=== PATIENT | female | born 1965 | race Caucasian/White ===

== ENCOUNTER 2018-03-24 19:34 | Inpatient (IN) | payer OTHER ==
[~2018-03-24] VITALS: Ht 168.9 cm; Wt 68.7 kg
[~2018-03-24 19:34] MED LIST: BACT800T5 PO; CLIN1CAP5 PO
[2018-03-24 19:57] VITALS: BP 146/88; PULSE 114; RESP 18; TEMP 102.9; O2SAT 97
[2018-03-24 21:00] LABS: AUTOMATED NEUTROPHIL # 8.7 TH/MM3 (1.8-7.7); BASOPHIL % 0.4 % (0.0-2.0); EOSINOPHIL % 0.2 % (0.0-4.0); HEMATOCRIT 40.4 % (35.0-46.0); HEMOGLOBIN 13.9 GM/DL (11.6-15.3); LYMPH % 10.2 % (9.0-44.0); MEAN CELL VOLUME 86.1 FL (80.0-100.0); MEAN CORPUSCULAR HEMOGLOBIN 29.7 PG (27.0-34.0); MEAN CORPUSCULAR HGB CONC 34.5 % (32.0-36.0); MEAN PLATELET VOLUME 7.3 FL (7.0-11.0); MONO % 4.3 % (0.0-8.0); MONOCYTE # 0.4 TH/MM3 (0-0.9); NEUT % 84.9 % (16.0-70.0); PLATELET COUNT 301 TH/MM3 (150-450); RED BLOOD COUNT 4.69 MIL/MM3 (4.00-5.30); RED CELL DISTRIBUTION WIDTH 13.8 % (11.6-17.2); WHITE BLOOD COUNT 10.3 TH/MM3 (4.0-11.0)
[2018-03-24 21:10] LABS: ALBUMIN 3.9 GM/DL (3.4-5.0); AST (GOT) 16 U/L (15-37); BICARBONATE 25.3 MEQ/L (21.0-32.0); BLOOD UREA NITROGEN 7 MG/DL (7-18); CALCIUM 9.3 MG/DL (8.5-10.1); CHLORIDE 96 MEQ/L (98-107); CREATININE 0.78 MG/DL (0.50-1.00); GLOMERULAR FILTRATION RATE 77 ML/MIN (>89); GLUCOSE,RANDOM 104 MG/DL (74-106); SODIUM (NA) 132 MEQ/L (136-145)
[2018-03-24 21:11] LABS: ALT (GPT) 24 U/L (10-53)
[2018-03-24 21:13] LABS: ALKALINE PHOSPHATASE 128 U/L (45-117); TOTAL BILIRUBIN ADULT 0.7 MG/DL (0.2-1.0); TOTAL PROTEIN 8.2 GM/DL (6.4-8.2)
[2018-03-24 21:21] VITALS: BP 150/76; PULSE 95; RESP 18; O2SAT 98
--- NOTE | 2018-03-24 21:29 | PD ---
HPI Chief Complaint: Fever Time Seen by Provider: 20:54 Travel History International Travel<30 days: No Contact w/Intl Traveler<30days: No Traveled to known affect area: No History of Present Illness HPI 52 YO F presents to the ED for evaluation of ~24 hour history of fever and vaginal spotting. She denies ear pain, sore throat, rhinorrhea, sinus congestion , cough, chest pain, palpitations, shortness of breath, abdominal pain, anorexia , diarrhea, constipation, melena, hematochezia, dysuria, hematuria, back pain, neck pain, neck stiffness, numbness, tingling, weakness, limitations to range of motion of the extremities. She denies sick contacts. She states she has been menopausal for 6 years. She has not had a Pap smear in many years. Denies rough sex, foreign body, vaginal trauma, vaginal odor, vaginal discharge , unprotected sexual encounters. She denies IVDA, alcohol use. Endorses cigarette smoking. She did not receive this years flu immunization. [facility], LAT[facility] Past Medical History Medical History: Denies Significant Hx Cerebrovascular Accident: Yes (TIA) Tetanus Vaccination: Unknown Influenza Vaccination: No ?: Not Social History Alcohol Use: No Tobacco Use: No Substance Use: Yes (marijuana) Allergies-Medications (Allergen,Severity, Reaction): Coded Allergies: codeine (Unverified Allergy, Intermediate, EDEMA AND VOMITING, 03/24/18) Reported Meds & Prescriptions Reported Meds & Active Scripts Active Review of Systems Except as stated in HPI: all other systems reviewed are Neg Physical Exam Narrative GENERAL: Well-nourished, well-developed white female in no acute distress. SKIN: Warm and dry. Multiple small small wounds of the bilateral upper extremity suspicious for track aguilar. There is a scar in the right antecubital space. HEAD: Normocephalic. Atraumatic. EYES: No scleral icterus. No injection or drainage. PERRLA. EOMI. ENT: Pearly barney tympanic membranes bilaterally. Nasal mucosa is moist. Oropharynx without erythema, edema or exudate. NECK: Supple, trachea midline. No JVD or lymphadenopathy. No midline tenderness to palpation. Patient retains full, active, painless range of motion of the neck. No nuchal rigidity. CARDIOVASCULAR: Tachycardic, regular rate and rhythm without murmurs, gallops, or rubs. 2+ DP and radial pulses bilaterally. RESPIRATORY: Breath sounds clear and equal bilaterally. No accessory muscle use. GASTROINTESTINAL: Abdomen soft, non-tender, nondistended. + Bowel sounds MUSCULOSKELETAL: No cyanosis, or edema. No tenderness to palpation or limitations to range of motion of the joints of the upper and lower extremities bilaterally. NEUROLOGICAL: Awake and alert. Cranial nerves II through XII intact. Motor and sensory grossly within normal limits. 5/5 muscle strength in all muscle groups. Normal speech. BACK: Nontender without obvious deformity. No CVA tenderness. No midline tenderness. Data Data Last Documented VS Orders Orders Sepsis Workup Initiated (03/24/18 ) Complete Blood Count With Diff (03/24/18 20:01) Comprehensive Metabolic Panel (03/24/18 20:) Urinalysis - C+S If Indicated (03/24/18 20:) Lactic Acid Sepsis Protocol (03/24/18 20:01) Blood Culture (03/24/18 20:01) Iv Access Insert/Monitor (03/24/18 20:01) Lactic Acid Sepsis Protocol (03/24/18 21:18) Influenzae A/B Antigen (03/24/18 21:18) Chest, Single Ap (03/24/18 ) Ed Urine Pregnancytest Poc (03/24/18:18) Sodium Chlor 0.9% 1000 Ml Inj (Ns 1000 M (03/24/18 21:30) Sepsis Workup Initiated (03/24/18 ) Electrocardiogram (03/24/18 21:19) Blood Glucose (03/24/18 21:19) Ecg Monitoring (03/24/18 21:19) Oximetry (03/24/18 21:19) Acetaminophen (Tylenol) (03/24/18 21:30) Ondansetron Odt (Zofran Odt) (03/24/18 21:30) Sodium Chlor 0.9% 1000 Ml Inj (Ns 1000 M (03/24/18 21:30) Troponin I (03/24/18 21:27) Ckmb (Isoenzyme) Profile (03/24/18 21:27) Drug Screen, Random Urine (03/24/18 21:45) Admit Order (Ed Use Only) (03/25/18 00:59) Labs Laboratory Tests Test 03/24/18 20:29 03/24/18 21:03/24/18 23:30 White Blood Count 10.3 TH/MM3 Red Blood Count 4.69 MIL/MM3 Hemoglobin 13.9 GM/DL Hematocrit 40.4 % Mean Corpuscular Volume 86.1 FL Mean Corpuscular Hemoglobin 29.7 PG Mean Corpuscular Hemoglobin Concent 34.5 % Red Cell Distribution Width 13.8 % Platelet Count 301 TH/MM3 Mean Platelet Volume 7.3 FL Neutrophils (%) (Auto) 84.9 % Lymphocytes (%) (Auto) 10.2 % Monocytes (%) (Auto) 4.3 % Eosinophils (%) (Auto) 0.2 % Basophils (%) (Auto) 0.4 % Neutrophils # (Auto) 8.7 TH/MM3 Lymphocytes # (Auto) 1.0 TH/MM3 Monocytes # (Auto) 0.4 TH/MM3 Eosinophils # (Auto) 0.0 TH/MM3 Basophils # (Auto) 0.0 TH/MM3 CBC Comment DIFF FINAL Differential Comment Blood Urea Nitrogen 7 MG/DL Creatinine 0.78 MG/DL Random Glucose 104 MG/DL Total Protein 8.2 GM/DL Albumin 3.9 GM/DL Calcium Level 9.3 MG/DL Alkaline Phosphatase 128 U/L Aspartate Amino Transf (AST/SGOT) 16 U/L Alanine Aminotransferase (ALT/SGPT) 24 U/L Total Bilirubin 0.7 MG/DL Sodium Level 132 MEQ/L Potassium Level 3.2 MEQ/L Chloride Level 96 MEQ/L Carbon Dioxide Level 25.3 MEQ/L Anion Gap 11 MEQ/L Estimat Glomerular Filtration Rate 77 ML/MIN Lactic Acid Level 0.9 mmol/L 1.1 mmol/L Total Creatine Kinase 32 U/L Troponin I LESS THAN 0.02 NG/ML Urine Color LIGHT-YELLOW Urine Turbidity CLEAR Urine pH 5.5 Urine Specific [place] 1.006 Urine Protein NEG mg/dL Urine Glucose (UA) NEG mg/dL Urine Ketones NEG mg/dL Urine Occult Blood NEG Urine Nitrite NEG Urine Bilirubin NEG Urine Urobilinogen LESS THAN 2.0 MG/DL Urine Leukocyte Esterase NEG Urine RBC LESS THAN 1 /hpf Urine WBC 2 /hpf Urine Squamous Epithelial Cells <1 /hpf Urine Transitional Epithelial Cells <1 /hpf Urine Bacteria RARE /hpf Urine Mucus FEW /lpf Microscopic Urinalysis Comment CULT NOT INDICATED Urine Opiates Screen NEG Urine Barbiturates Screen NEG Urine Amphetamines Screen NEG Urine Benzodiazepines Screen NEG Urine Cocaine Screen NEG Urine Cannabinoids Screen POS [facility] Medical Decision Making Medical Screen Exam Complete: Yes Emergency Medical Condition: Yes Differential Diagnosis influenza versus echovirus versus postmenopausal bleeding versus leiomyoma versus other Narrative Course 52 YO F presents to the ED for evaluation of ~24 hour history of fever and vaginal spotting. Menopausal for 6 years. She has not had a Pap smear in many years. Did not receive this years flu vaccination. Denies IVDA. Temp 102.9, pulse 114, BP 146/88, respiratory rate 18, O2 sats 97% on room air on presentation. On exam this is an ill-appearing white female in no acute distress. No focal neuro deficits. No nuchal rigidity. ENT exam unremarkable. Chest CTA B. Abdomen soft and nontender. I do note several small puncture wounds on bilateral upper extremities that are suspicious for track. Patient adamantly denies IVDA. IV was established. Sepsis fluid resuscitation was initiated. Patient was administered 650 mg Tylenol p.o., 4 mg Zofran ODT. Blood cultures were obtained. I offered the patient a pelvic exam, she declines at this time. EKG rate 92, sinus rhythm. W[place] interval 135, QRS 98, QTC 385 ms. Normal axis. CXR: Negative exam CBC: WBC 10.3. Hemoglobin 13.9. CMP: BUN 7, creatinine 0.78. Sodium 132, chloride 96. Potassium 3.2. Lactic acid 0.9. Repeat lactic acid 1.1. Influenza swab negative. ED urine test negative. UA: Pending. Urine drug screen: Pending. Patient signed out to Dr. Smith end of shift. Please see his note for disposition. Gail Gomez Mar 24, 2018 21:29
[2018-03-24] MEDS ORDERED: SODIUM CHLOR 0.9% 1000 ML INJ 1,000 ML IV ONE ×2 (21:30)
[2018-03-24] MEDS ORDERED: ACETAMINOPHEN 325 MG TAB PO ONE (21:30)
[2018-03-24] MEDS ORDERED: ONDANSETRON ODT 4 MG TAB PO ONE (21:30)
--- NOTE | 2018-03-24 21:52 | RADRPT ---
EXAM DATE: 03/24/2018 9:46 PM EDT AGE/SEX: 52 years / Female INDICATIONS: Shortness of breath, mid-chest pain and mid to lower back pain. CLINICAL DATA: This is the patient's initial encounter. Patient reports that signs and symptoms have been present for 1 day and indicates a pain score of 10/10. MEDICAL/SURGICAL HISTORY: None. . Neck surgery. COMPARISON: No prior [facility] exams available for comparison. FINDINGS: A single AP view of the chest demonstrates the lungs to be symmetrically aerated without evidence of mass, infiltrate or effusion. The cardiomediastinal contours are unremarkable. Osseous structures a re intact. CONCLUSION: Negative examination. Electronically signed by: Omre Middleton MD 03/24/2018 9:50 PM EDT
[2018-03-24 22:25] VITALS: TEMP 102.1
--- NOTE | 2018-03-24 22:34 | PD ---
Physical Exam Date Seen by Provider: Mar 24, 2018 Time Seen by Provider: 22:32 Narrative The patient is a 52-year-old female who was initially evaluated by the mid- level provider. Please refer to the initial history, physical, diagnostic evaluation, and treatment modality plan. The patient was signed out at 10:30 PM with UA pending. Data Data Last Documented VS Vital Signs Date Time Temp Pulse Resp B/P (MAP) Pulse Ox O2 Delivery O2 Flow Rate FiO2 03/25/18 00:37 101.6 92 16 138/79 (98) 99 Room Air Orders Orders Sepsis Workup Initiated (03/24/18 ) Complete Blood Count With Diff (03/24/18 20:01) Comprehensive Metabolic Panel (03/24/18 20:01) Urinalysis - C+S If Indicated (03/24/18 20:01) Lactic Acid Sepsis Protocol (03/24/18 20:01) Blood Culture (03/24/18 20:01) Iv Access Insert/Monitor (03/24/18 20:01) Lactic Acid Sepsis Protocol (03/24/18 21:18) Influenzae A/B Antigen (03/24/18 21:18) Chest, Single Ap (03/24/18 ) Ed Urine Pregnancytest Poc (03/24/18:18) Sodium Chlor 0.9% 1000 Ml Inj (Ns 1000 M (03/24/18 21:30) Sepsis Workup Initiated (03/24/18 ) Electrocardiogram (03/24/18 21:19) Blood Glucose (03/24/18 21:19) Ecg Monitoring (03/24/18 21:19) Oximetry (03/24/18 21:19) Acetaminophen (Tylenol) (03/24/18 21:30) Ondansetron Odt (Zofran Odt) (03/24/18 21:30) Sodium Chlor 0.9% 1000 Ml Inj (Ns 1000 M (03/24/18 21:30) Troponin I (03/24/18 21:27) Ckmb (Isoenzyme) Profile (03/24/18 21:27) Drug Screen, Random Urine (03/24/18 21:45) Admit Order (Ed Use Only) (03/25/18 00:59) Labs Laboratory Tests Test 03/24/18 20:29 03/24/18 21:25 03/24/18 23:30 White Blood Count 10.3 TH/MM3 Red Blood Count 4.69 MIL/MM3 Hemoglobin 13.9 GM/DL Hematocrit 40.4 % Mean Corpuscular Volume 86.1 FL Mean Corpuscular Hemoglobin 29.7 PG Mean Corpuscular Hemoglobin Concent 34.5 % Red Cell Distribution Width 13.8 % Platelet Count 301 TH/MM3 Mean Platelet Volume 7.3 FL Neutrophils (%) (Auto) 84.9 % Lymphocytes (%) (Auto) 10.2 % Monocytes (%) (Auto) 4.3 % Eosinophils (%) (Auto) 0.2 % Basophils (%) (Auto) 0.4 % Neutrophils # (Auto) 8.7 TH/MM3 Lymphocytes # (Auto) 1.0 TH/MM3 Monocytes # (Auto) 0.4 TH/MM3 Eosinophils # (Auto) 0.0 TH/MM3 Basophils # (Auto) 0.0 TH/MM3 CBC Comment DIFF FINAL Differential Comment Blood Urea Nitrogen 7 MG/DL Creatinine 0.78 MG/DL Random Glucose 104 MG/DL Total Protein 8.2 GM/DL Albumin 3.9 GM/DL Calcium Level 9.3 MG/DL Alkaline Phosphatase 128 U/L Aspartate Amino Transf (AST/SGOT) 16 U/L Alanine Aminotransferase (ALT/SGPT) 24 U/L Total Bilirubin 0.7 MG/DL Sodium Level 132 MEQ/L Potassium Level 3.2 MEQ/L Chloride Level 96 MEQ/L Carbon Dioxide Level 25.3 MEQ/L Anion Gap 11 MEQ/L Estimat Glomerular Filtration Rate 77 ML/MIN Lactic Acid Level 0.9 mmol/L 1.1 mmol/L Total Creatine Kinase 32 U/L Troponin I LESS THAN 0.02 NG/ML Urine Color LIGHT-YELLOW Urine Turbidity CLEAR Urine pH 5.5 Urine Specific [place] 1.006 Urine Protein NEG mg/dL Urine Glucose (UA) NEG mg/dL Urine Ketones NEG mg/dL Urine Occult Blood NEG Urine Nitrite NEG Urine Bilirubin NEG Urine Urobilinogen LESS THAN 2.0 MG/DL Urine Leukocyte Esterase NEG Urine RBC LESS THAN 1 /hpf Urine WBC 2 /hpf Urine Squamous Epithelial Cells <1 /hpf Urine Transitional Epithelial Cells <1 /hpf Urine Bacteria RARE /hpf Urine Mucus FEW /lpf Microscopic Urinalysis Comment CULT NOT INDICATED Urine Opiates Screen NEG Urine Barbiturates Screen NEG Urine Amphetamines Screen NEG Urine Benzodiazepines Screen NEG Urine Cocaine Screen NEG Urine Cannabinoids Screen POS MDM Medical Record Reviewed: Yes Supervised Visit with JIM: Yes Interpretation(s) Last Impressions Chest X-Ray 03/24/18 0000 Signed Impressions: CONCLUSION: Negative examination. Date/Time Source Procedure Growth Status 03/24/18 20:29 Blood Peripheral Aerobic Blood Culture Pending Received 03/24/18 20:29 Blood Peripheral Anaerobic Blood Culture Pending Received 03/24/18 20:29 Blood Peripheral Aerobic Blood Culture Pending Received 03/24/18 20:29 Blood Peripheral Anaerobic Blood Culture Pending Received 03/24/18 21:25 Nasal Washing Influenza Types A,B Antigen (TRINI) - Final NEGATIVE FOR FLU A AND B ANTIGEN.... Complete Laboratory Tests Test 03/24/18 20:29 03/24/18 21:25 03/24/18 23:30 White Blood Count 10.3 TH/MM3 Red Blood Count 4.69 MIL/MM3 Hemoglobin 13.9 GM/DL Hematocrit 40.4 % Mean Corpuscular Volume 86.1 FL Mean Corpuscular Hemoglobin 29.7 PG Mean Corpuscular Hemoglobin Concent 34.5 % Red Cell Distribution Width 13.8 % Platelet Count 301 TH/MM3 Mean Platelet Volume 7.3 FL Neutrophils (%) (Auto) 84.9 % Lymphocytes (%) (Auto) 10.2 % Monocytes (%) (Auto) 4.3 % Eosinophils (%) (Auto) 0.2 % Basophils (%) (Auto) 0.4 % Neutrophils # (Auto) 8.7 TH/MM3 Lymphocytes # (Auto) 1.0 TH/MM3 Monocytes # (Auto) 0.4 TH/MM3 Eosinophils # (Auto) 0.0 TH/MM3 Basophils # (Auto) 0.0 TH/MM3 CBC Comment DIFF FINAL Differential Comment Blood Urea Nitrogen 7 MG/DL Creatinine 0.78 MG/DL Random Glucose 104 MG/DL Total Protein 8.2 GM/DL Albumin 3.9 GM/DL Calcium Level 9.3 MG/DL Alkaline Phosphatase 128 U/L Aspartate Amino Transf (AST/SGOT) 16 U/L Alanine Aminotransferase (ALT/SGPT) 24 U/L Total Bilirubin 0.7 MG/DL Sodium Level 132 MEQ/L Potassium Level 3.2 MEQ/L Chloride Level 96 MEQ/L Carbon Dioxide Level 25.3 MEQ/L Anion Gap 11 MEQ/L Estimat Glomerular Filtration Rate 77 ML/MIN Lactic Acid Level 0.9 mmol/L 1.1 mmol/L Total Creatine Kinase 32 U/L Troponin I LESS THAN 0.02 NG/ML Urine Color LIGHT-YELLOW Urine Turbidity CLEAR Urine pH 5.5 Urine Specific [place] 1.006 Urine Protein NEG mg/dL Urine Glucose (UA) NEG mg/dL Urine Ketones NEG mg/dL Urine Occult Blood NEG Urine Nitrite NEG Urine Bilirubin NEG Urine Urobilinogen LESS THAN 2.0 MG/DL Urine Leukocyte Esterase NEG Urine RBC LESS THAN 1 /hpf Urine WBC 2 /hpf Urine Squamous Epithelial Cells <1 /hpf Urine Transitional Epithelial Cells <1 /hpf Urine Bacteria RARE /hpf Urine Mucus FEW /lpf Microscopic Urinalysis Comment CULT NOT INDICATED Urine Opiates Screen NEG Urine Barbiturates Screen NEG Urine Amphetamines Screen NEG Urine Benzodiazepines Screen NEG Urine Cocaine Screen NEG Urine Cannabinoids Screen POS Differential Diagnosis Differential diagnosis includes bacteremia, septicemia, pyelonephritis, influenza, pneumonia, sepsis, viral syndrome. Narrative Course The patient is a 52-year-old female was initially evaluated by the mid-level provider. Please refer to the initial history, physical, diagnostic evaluation , treatment modality plan. The patient did meet SIRS criteria, had initial lactic acid and follow-up lactic acid that were normal. White count was normal. Influenza screen was negative. Chest x-ray reveals no evidence of pneumonia. UA was sent to lab. UA is unremarkable. Influenza screen is negative. White count was normal with negative lactic acid, however, the patient's temperature was reevaluated and was still over 101 with tachycardia between 101 110. Therefore, patient was administered Toradol 50 mg intravenously. She denies any history of IVDA, however, possibly was noted to have possible track aguilar in the right ACF. Therefore, the patient was administered Vanco will be a 23 hour observation until blood cultures are negative. Sepsis Criteria SIRS Criteria (2 or more): Temp > 100.9 or < 96.8, Heart rate over 90 Physician Communication Physician Communication The on-call medical service was paged for 23 hour observation. I discussed the patient with Dr. Walker who agrees with 23-hour observation. Diagnosis Primary Impression: Febrile illness Additional Impression: SIRS (systemic inflammatory response syndrome) Admitting Information Admitting Physician Requests: Observation Scripts No Active Prescriptions or Reported Meds Condition: Stable Shawn Smith MD Mar 24, 2018 22:34
[2018-03-24 23:54] LABS: BACTERIA, URINE RARE /hpf; BILIRUBIN, URINE NEG (NEG); BLOOD, URINE NEG (NEG); GLUCOSE,URINE NEG (NEG); KETONE, URINE NEG (NEG); MUCUS URINE FEW /lpf (OCC); NITRITE,URINE NEG (NEG); PH, URINE 5.5 (5.0-8.5); SQUAMOUS EPITHELIAL CELL URINE <1 /hpf (0-5); TRANSITIONAL EPI CELLS, URINE <1 /hpf; URINE COLOR LIGHT-YELLOW (YELLW/STRAW); URINE LEUKOCYTE ESTERASE NEG (NEG)
[2018-03-25] VITALS (8 sets, daily range): BP systolic 97–138; BP diastolic 55–79; PULSE 72–94; RESP 16–20; TEMP 97.7–101.6; O2SAT 94–99
[2018-03-25 00:31] LABS: TROPONIN I LESS THAN 0.02 NG/ML (0.02-0.05)
[2018-03-25] MEDS: SODIUM CHLOR 0.9% 1000 ML INJ 1,000 ML IV SCH ×3 (01:27→21:12)
[2018-03-25] MEDS ORDERED: POTASSIUM CHLORIDE 10 MEQ CONTROLLED RELEASE TAB PO ONE (01:30)
[2018-03-25] MEDS ORDERED: NALOXONE HCL 0.4 MG/ML AMP IV PUSH PRN (01:30)
[2018-03-25] MEDS ORDERED: SODIUM CHLORIDE 0.9% FLUSH 10 ML FLUSH IV FLUSH PRN (01:30)
[2018-03-25] MEDS: ACETAMINOPHEN 325 MG TAB PO PRN ×3 (02:00→21:03)
--- NOTE | 2018-03-25 02:32 | HHI.HP ---
[facility] No Primary Care Physician Admission Diagnosis Febrile illness with SIRS Diagnoses: Travel History International Travel<30 Days: No Contact w/Intl Traveler <30 Da: No Traveled to Known Affected Are: No History of Present Illness 52-year-old female with no significant past medical history presents emergency department for evaluation of fever. Patient reports at home her fever was 103. She endorses nausea and associated vomiting 5 or 6 episodes. She denies any chest pain or shortness of breath. No cough or rhinorrhea. No abdominal pain. In the ED the patient was noted to have multiple small wounds in the bilateral upper extremities that were suspicious for track aguilar. Patient adamantly denies any IV drug abuse. Vital signs: Temperature 102.9, pulse 114, respiratory rate 18, blood pressure 146/88, pulse ox 97% on room air Review of Systems Except as stated in HPI: all other systems reviewed are Neg Past Family Social History Past Medical History None Past Surgical History Neck surgery Reported Medications Reported Meds & Active Scripts Active No Active Prescriptions or Reported Medications Allergies: Coded Allergies: codeine (Unverified Allergy, Intermediate, EDEMA AND VOMITING, 03/24/18) Family History Negative for CAD/DM Social History Occasional tobacco. Denies alcohol and illicit drugs. Physical Exam Vital Signs Vital Signs Date Time Temp Pulse Resp B/P (MAP) Pulse Ox O2 Delivery O2 Flow Rate FiO2 03/25/18 02:16 101.5 94 20 129/63 (85) 97 03/25/18 01:42 03/25/18 00:37 101.6 92 16 138/79 (98) 99 Room Air 03/24/18 22:25 102.1 03/24/18 21:21 95 18 150/76 (100) 98 Room Air 03/24/18 21:21 95 20 98 Room Air 03/24/18 19:57 102.9 114 18 146/88 (107) 97 Physical Exam GENERAL: female lying in bed SKIN: Multiple small wounds, bilateral forearms without signs of infection HEAD: Atraumatic. Normocephalic. No temporal or scalp tenderness. EYES: Pupils equal round and reactive. Extraocular motions intact. No scleral icterus. No injection or drainage. ENT: Nose without bleeding, purulent drainage or septal hematoma. Throat without erythema, tonsillar hypertrophy or exudate. Uvula midline. Airway patent. NECK: Trachea midline. No JVD or lymphadenopathy. Supple, nontender, no meningeal signs. CARDIOVASCULAR: Regular rate and rhythm without murmurs, gallops, or rubs. RESPIRATORY: Clear to auscultation. Breath sounds equal bilaterally. No wheezes , rales, or rhonchi. GASTROINTESTINAL: Abdomen soft, non-tender, nondistended. No hepato-splenomegaly , or palpable masses. No guarding. MUSCULOSKELETAL: Extremities without clubbing, cyanosis, or edema. No joint tenderness, effusion, or edema noted. No calf tenderness. NEUROLOGICAL: Awake and alert. Cranial nerves II through XII intact. Motor and sensory grossly within normal limits. Normal speech. Laboratory Laboratory Tests Test 03/24/18 20:29 03/24/18 21:25 03/24/18 23:30 White Blood Count 10.3 Red Blood Count 4.69 Hemoglobin 13.9 Hematocrit 40.4 Mean Corpuscular Volume 86.1 Mean Corpuscular Hemoglobin 29.7 Mean Corpuscular Hemoglobin Concent 34.5 Red Cell Distribution Width 13.8 Platelet Count 301 Mean Platelet Volume 7.3 Neutrophils (%) (Auto) 84.9 Lymphocytes (%) (Auto) 10.2 Monocytes (%) (Auto) 4.3 Eosinophils (%) (Auto) 0.2 Basophils (%) (Auto) 0.4 Neutrophils # (Auto) 8.7 Lymphocytes # (Auto) 1.0 Monocytes # (Auto) 0.4 Eosinophils # (Auto) 0.0 Basophils # (Auto) 0.0 CBC Comment DIFF FINAL Differential Comment Blood Urea Nitrogen 7 Creatinine 0.78 Random Glucose 104 Total Protein 8.2 Albumin 3.9 Calcium Level 9.3 Alkaline Phosphatase 128 Aspartate Amino Transf (AST/SGOT) 16 Alanine Aminotransferase (ALT/SGPT) 24 Total Bilirubin 0.7 Sodium Level 132 Potassium Level 3.2 Chloride Level 96 Carbon Dioxide Level 25.3 Anion Gap 11 Estimat Glomerular Filtration Rate 77 Lactic Acid Level 0.9 1.1 Total Creatine Kinase 32 Troponin I LESS THAN 0.02 Urine Color LIGHT-YELLOW Urine Turbidity CLEAR Urine pH 5.5 Urine Specific [place] 1.006 Urine Protein NEG Urine Glucose (UA) NEG Urine Ketones NEG Urine Occult Blood NEG Urine Nitrite NEG Urine Bilirubin NEG Urine Urobilinogen LESS THAN 2.0 Urine Leukocyte Esterase NEG Urine RBC LESS THAN 1 Urine WBC 2 Urine Squamous Epithelial Cells <1 Urine Transitional Epithelial Cells <1 Urine Bacteria RARE Urine Mucus FEW Microscopic Urinalysis Comment CULT NOT INDICATED Urine Opiates Screen NEG Urine Barbiturates Screen NEG Urine Amphetamines Screen NEG Urine Benzodiazepines Screen NEG Urine Cocaine Screen NEG Urine Cannabinoids Screen POS Date/Time Source Procedure Growth Status 03/24/18 20:29 Blood Peripheral Aerobic Blood Culture Pending Received 03/24/18 20:29 Blood Peripheral Anaerobic Blood Culture Pending Received 03/24/18 21:25 Nasal Washing Influenza Types A,B Antigen (TRINI) - Final NEGATIVE FOR FLU A AND B ANTIGEN.... Complete Result Diagram: 03/24/18202803/24/182028 Caprini VTE Risk Assessment Caprini VTE Risk Assessment: No/Low Risk (score <= 1) Caprini Risk Assessment Model Point Value = 1 Point Value = 2 Point Value = 3 Point Value = 5 Age 41-60 Minor surgery BMI > 25 kg/m2 Swollen legs Varicose veins or History of unexplained or recurrent spontaneous Oral contraceptives or hormone replacement Sepsis (< 1 month) Serious lung disease, including pneumonia (< 1 month) Abnormal pulmonary function Acute myocardial infarction Congestive heart failure (< 1 month) History of inflammatory bowel disease Medical patient at bed rest Age 61-74 Arthroscopic surgery Major open surgery (> 45 min) Laparoscopic surgery (> 45 min) Malignancy Confined to bed (> 72 hours) Immobilizing plaster cast Central venous access Age >= 75 History of VTE Family history of VTE Factor V Leiden Prothrombin [id number] Lupus anticoagulant Anticardiolipin antibodies Elevated serum homocysteine Heparin-induced thrombocytopenia Other congenital or acquired thrombophilia Stroke (< 1 month) Elective arthroplasty Hip, pelvis, or leg fracture Acute spinal cord injury (< 1 month) Prophylaxis Regimen Total Risk Factor Score Risk Level Prophylaxis Regimen 0-1 Low Early ambulation 2 Moderate Order ONE of the following: *Sequential Compression Device (SCD) *Heparin 5000 units SQ BID 3-4 Higher Order ONE of the following medications: *Heparin 5000 units SQ TID *Enoxaparin/Lovenox 40 mg SQ daily (WT < 150 kg, CrCl > 30 mL/min) *Enoxaparin/Lovenox 30 mg SQ daily (WT < 150 kg, CrCl > 10-29 mL/min) *Enoxaparin/Lovenox 30 mg SQ BID (WT < 150 kg, CrCl > 30 mL/min) AND/OR *Sequential Compression Device (SCD) 5 or more Highest Order ONE of the following medications: *Heparin 5000 units SQ TID (Preferred with Epidurals) *Enoxaparin/Lovenox 40 mg SQ daily (WT < 150 kg, CrCl > 30 mL/min) *Enoxaparin/Lovenox 30 mg SQ daily (WT < 150 kg, CrCl > 10-29 mL/min) *Enoxaparin/Lovenox 30 mg SQ BID (WT < 150 kg, CrCl > 30 mL/min) AND *Sequential Compression Device (SCD) Assessment and Plan Assessment and Plan Assessment/plan: 1. Fever Unknown origin Chest x-ray negative for acute process, personally reviewed UA negative Blood cultures pending Given multiple wounds on bilateral upper extremities, suspicion for IV drug abuse. Patient will be admitted to observation until blood cultures return out of concern for bacteremia. 2. Hypokalemia Status post p.o. supplementation Monitor [facility] healthy diet Electrolytes: As above NS at 100 cc/hour Allie Walker MD Mar 25, 2018 02:31
[2018-03-25] MEDS: SODIUM CHLORIDE 0.9% FLUSH 10 ML FLUSH IV FLUSH SCH ×2 (09:00→21:11)
--- NOTE | 2018-03-25 09:26 | HHI.PR ---
Subjective Remarks Follow up on patient with fever. Patient seen and examined. Patient complains of severe left-sided headache radiating down to left side of her neck. She states she has left-sided neck pain chronically but this is much worse. It is exacerbated with movement. She reports sudden onset of fever as high as 103 yesterday while at home with associated nausea and vomiting 10. She denies any blood in the vomitus. She denies any complaints of abdominal pain or diarrhea. She does state that she had some vaginal bleeding which she has not had for years that she is postmenopausal. She denies any urinary complaints. She denies any ill contacts. She denies any previous history of meningitis. Influenza AB was negative. Blood cultures are pending. Tmax 102.1 overnight, currently temp 99.1. Objective Vitals Vital Signs Date Time Temp Pulse Resp B/P (MAP) Pulse Ox O2 Delivery O2 Flow Rate FiO2 03/25/18 08:02 99.1 78 16 101/59 (73) 94 03/25/18 05:06 98.3 84 18 118/64 (82) 95 03/25/18 02:16 101.5 94 20 129/63 (85) 97 03/25/18 01:42 03/25/18 00:37 101.6 92 16 138/79 (98) 99 Room Air 03/24/18 22:25 102.1 03/24/18 21:21 95 18 150/76 (100) 98 Room Air 03/24/18 21:21 95 20 98 Room Air 03/24/18 19:57 102.9 114 18 146/88 (107) 97 Result Diagram: 03/24/18202803/24/182028 Imaging Last Impressions Chest X-Ray 03/24/18 0000 Signed Impressions: CONCLUSION: Negative examination. Objective Remarks GENERAL: Thin WDWN female, INAD. Lying in bed. SKIN: Multiple small wounds, bilateral forearms without signs of infection HEAD: Atraumatic. Normocephalic. +left sided temporal tenderness to palpation. EYES: Pupils equal round and reactive. Extraocular motions intact. No scleral icterus. No injection or drainage. ENT: Nose without bleeding or purulent drainage. Throat without erythema, tonsillar hypertrophy or exudate. Uvula midline. Airway patent. NECK: Trachea midline. No JVD or lymphadenopathy. Left side of neck/trapezius area tender to palpation ?rigidity on exam. CARDIOVASCULAR: Regular rate and rhythm without murmurs, gallops, or rubs. RESPIRATORY: Clear to auscultation. Breath sounds equal bilaterally. No wheezes , rales, or rhonchi. GASTROINTESTINAL: Abdomen soft, nondistended. +tenderness to palpation RLQ. No hepato-splenomegaly, or palpable masses. No guarding. MUSCULOSKELETAL: Extremities without clubbing, cyanosis, or edema. No joint tenderness, effusion, or edema noted. No calf tenderness. NEUROLOGICAL: Awake and alert. Cranial nerves II through XII grossly intact. Motor and sensory grossly within normal limits. Normal speech. PSYCHIATRIC: Calm and cooperative. Procedures None A/P Assessment and Plan 52-year-old female with no significant past medical history presents emergency department for evaluation of fever. Patient reports at home her fever was 103. She endorses nausea and associated vomiting 5 or 6 episodes. Fever of uncertain etiology ?viral etiology Chest x-ray negative for acute process UA negative Influenza neg Blood cultures pending lactic acid 1.1 c/o left sided headache and neck pain ?rigidity on exam -await blood culture results -monitor fevers and white count -obtain LP and follow up on fluid studies -lidoderm patch to left side of neck -supportive care N/V abdominal pain -obtain CT abd/pelvis with IV contrast -obtain lipase level -IV antiemetics prn Hypokalemia, suspect secondary to GI losses Status post p.o. supplementation -Monitor BMP/repeat lab pending Hyponatremia, mild -continue on IVF -continue to monitor sodium level Cannabis use Urine tox screen + for cannabinoids -discussed cessation FEN Heart healthy diet Electrolytes: As above NS at 100 cc/hour Mary May Mar 25, 2018 09:26
[2018-03-25 10:07] LABS: HEMATOCRIT 37.9 % (35.0-46.0); HEMOGLOBIN 12.7 GM/DL (11.6-15.3); MEAN CORPUSCULAR HEMOGLOBIN 28.8 PG (27.0-34.0); MEAN CORPUSCULAR HGB CONC 33.5 % (32.0-36.0); MEAN PLATELET VOLUME 7.2 FL (7.0-11.0); PLATELET COUNT 280 TH/MM3 (150-450); WHITE BLOOD COUNT 11.8 TH/MM3 (4.0-11.0)
[2018-03-25 10:16] LABS: INTERNATIONAL NORMALIZED RATIO 1.3 RATIO; PROTHROMBIN TIME - PATIENT 12.7 SEC (9.8-11.6)
[2018-03-25 10:24] LABS: BICARBONATE 23.7 MEQ/L (21.0-32.0); CALCIUM 7.7 MG/DL (8.5-10.1); CREATININE 0.51 MG/DL (0.50-1.00)
[2018-03-25] MEDS ORDERED: DIATRIZOATE MEGLUM/DIATRIZOATE SOD 9 ML CUP PO ONE (11:00)
[2018-03-25] MEDS ORDERED: Vancomycin Consult Pharmacy 1 EA OTHER SCH (11:30)
--- NOTE | 2018-03-25 11:49 | PD.RAD ---
Post Procedure Progress Note Pre Procedure Diagnosis: (1) Febrile illness Post Procedure Diagnosis: (1) Febrile illness Procedure Date: Mar 25, 2018 Supervising Radiologist: Chinedu Lewis JR Proceduralist/Assist: Gin Muñoz, RT(R), Clark Louie RT(R) Anesthesia: Local Plan of Activity Patient to Unit: Nursing Unit Patient Condition: Good See PACS Report for procedural detail/treatment Spinal Procedure Lumbar Puncture L4-L5 Fluid Removal (CCs): 10 Fluid Description: Clear Puncture Time: 11:40 Findings: Opening pressure 13.8 cmH2O Jr. Joshua,Chinedu Alarcon MD Mar 25, 2018 11:49
[2018-03-25 12:26] LABS: TOTAL PROTEIN,CSF 26.2 MG/DL (15.0-45.0)
[2018-03-25] MEDS ORDERED: VANCOMYCIN INJ 1,000 MG in SODIUM CHLOR 0.9% 250 ML INJ 250 ML IV ONE (12:30)
[2018-03-25] MEDS: LIDOCAINE HCL 5% PATCH T-DERMAL SCH (12:35)
[2018-03-25 12:57] LABS: SUPERNATE COLOR TUBE #1 CLEAR (CLEAR); VOLUME TUBE # 1 2.8 ML
[2018-03-25 12:58] LABS: CSF LYMPHOCYTES 0 %; CSF NEUTROPHILS 0 %; WBC TUBE #1 0 /MM3 (0-10); WBC TUBE #4 0 /MM3 (0-10)
[2018-03-25 12:59] LABS: RBC TUBE #1 1 /MM3
--- NOTE | 2018-03-25 13:12 | PD.ID.CON ---
History of Present Illness Service ID Consult Requested By Dr Felipe Reason for Consult MRSA sepsis Primary Care Physician No Primary Care Physician Diagnoses: History of Present Illness 52 yo female presetned with high fever x 1 day Malaise and 9/10 neck pain for 2 mos H/[place] in [facility] [place] ago. Per pt she had neck fracture and infection. SHe cant recall what bacteria she was infected with. She is s/p harware and cadaver graft placement into the neck 1 yr ago Her culterus are 4/4 positive for MRSA @ 1 day She denies any neurologolical issue, specifically no extremeties weakness/ numbness or incontinence She had LP today and resiultx are P Review of Systems Constitutional: COMPLAINS OF: Fatigue, Fever, Night Sweats Musculoskeletal: COMPLAINS OF: Neck pain Neurologic: COMPLAINS OF: Headache Except as stated in HPI: all other systems reviewed are Neg Past Family Social History Allergies: Coded Allergies: codeine (Unverified Allergy, Intermediate, EDEMA AND VOMITING, 03/24/18) Past Medical History None Past Surgical History Neck surgery Active Ordered Medications Medications where reviewed in EMR Antibiotics Include: vancomycin Family History Negative for CAD/DM Social History Occasional tobacco. Denies alcohol and illicit drugs. Physical Exam Vital Signs Vital Signs Date Time Temp Pulse Resp B/P (MAP) Pulse Ox O2 Delivery O2 Flow Rate FiO2 03/25/18 10:30 98.2 76 20 97/55 (69) 96 03/25/18 08:02 99.1 78 16 101/59 (73) 94 03/25/18 05:06 98.3 84 18 118/64 (82) 95 03/25/18 02:16 101.5 94 20 129/63 (85) 97 03/25/18 01:42 03/25/18 00:37 101.6 92 16 138/79 (98) 99 Room Air 03/24/18 22:25 102.1 03/24/18 21:21 95 18 150/76 (100) 98 Room Air 03/24/18 21:21 95 20 98 Room Air 03/24/18 19:57 102.9 114 18 146/88 (107) 97 Physical Exam CONSTITUTIONAL/GENERAL: This is an adequately nourished patient, in no apparent distress. TUBES/LINES/DRAINS: SKIN: No jaundice, rashes, or lesions. Skin temperature appropriate. Not diaphoretic. HEAD: Atraumatic. Normocephalic. EYES: Pupils equal and round and reactive. Extraocular motions intact. No scleral icterus. No injection or drainage. Fundi not examined. ENT: Hearing grossly normal. Nose without bleeding or purulent drainage. Throat without visible erythema, exudates, masses, or lesions. NECK: Trachea midline. Supple, tender to palpation. Well healed scar posterior neck. No edema, erythema, drainage CARDIOVASCULAR: Regular rate and rhythm without murmurs, gallops, or rubs. No JVD. Peripheral pulses symmetric. RESPIRATORY/CHEST: Symmetric, unlabored respirations. Clear to auscultation. Breath sounds equal bilaterally. No wheezes, rales, or rhonchi. GASTROINTESTINAL: Abdomen soft, non-tender, nondistended. No hepato-splenomegaly , or palpable masses. No guarding. Bowel sounds present. GENITOURINARY: Without palpable bladder distension. MUSCULOSKELETAL: Extremities without clubbing, cyanosis, or edema. No joint tenderness or effusion noted. No calf tenderness. No mottling or clubbing. LYMPHATICS: No palpable cervical or supraclavicular adenopathy. NEUROLOGICAL: Awake and alert. Motor and sensory grossly within normal limits. Follows commands. Cognitively sharp. Moves all extremities. PSYCHIATRIC: No obvious anxiety/depression. no apparent hallucinations or other psychotic thought process. Laboratory Laboratory Tests Test 03/24/18 20:29 03/24/18 21:25 03/24/18 23:30 03/25/18 09:35 White Blood Count 10.3 11.8 Red Blood Count 4.69 4.40 Hemoglobin 13.9 12.7 Hematocrit 40.4 37.9 Mean Corpuscular Volume 86.1 86.0 Mean Corpuscular Hemoglobin 29.7 28.8 Mean Corpuscular Hemoglobin Concent 34.5 33.5 Red Cell Distribution Width 13.8 14.0 Platelet Count 301 280 Mean Platelet Volume 7.3 7.2 Neutrophils (%) (Auto) 84.9 Lymphocytes (%) (Auto) 10.2 Monocytes (%) (Auto) 4.3 Eosinophils (%) (Auto) 0.2 Basophils (%) (Auto) 0.4 Neutrophils # (Auto) 8.7 Lymphocytes # (Auto) 1.0 Monocytes # (Auto) 0.4 Eosinophils # (Auto) 0.0 Basophils # (Auto) 0.0 CBC Comment DIFF FINAL Differential Comment Blood Urea Nitrogen 7 6 Creatinine 0.78 0.51 Random Glucose 104 118 Total Protein 8.2 Albumin 3.9 Calcium Level 9.3 7.7 Alkaline Phosphatase 128 Aspartate Amino Transf (AST/SGOT) 16 Alanine Aminotransferase (ALT/SGPT) 24 Total Bilirubin 0.7 Sodium Level 132 141 Potassium Level 3.2 3.5 Chloride Level 96 109 Carbon Dioxide Level 25.3 23.7 Anion Gap 11 8 Estimat Glomerular Filtration Rate 77 126 Lactic Acid Level 0.9 1.1 Total Creatine Kinase 32 Troponin I LESS THAN 0.02 Urine Color LIGHT-YELLOW Urine Turbidity CLEAR Urine pH 5.5 Urine Specific [place] 1.006 Urine Protein NEG Urine Glucose (UA) NEG Urine Ketones NEG Urine Occult Blood NEG Urine Nitrite NEG Urine Bilirubin NEG Urine Urobilinogen LESS THAN 2.0 Urine Leukocyte Esterase NEG Urine RBC LESS THAN 1 Urine WBC 2 Urine Squamous Epithelial Cells <1 Urine Transitional Epithelial Cells <1 Urine Bacteria RARE Urine Mucus FEW Microscopic Urinalysis Comment CULT NOT INDICATED Urine Opiates Screen NEG Urine Barbiturates Screen NEG Urine Amphetamines Screen NEG Urine Benzodiazepines Screen NEG Urine Cocaine Screen NEG Urine Cannabinoids Screen POS Prothrombin Time 12.7 Prothromb Time International Ratio 1.3 Activated Partial Thromboplast Time 28.8 C-Reactive Protein 10.90 Lipase 82 Test 03/25/18 11:32 CSF Glucose 77 CSF Lactic Acid 1.7 CSF Total Protein 26.2 Date/Time Source Procedure Growth Status 03/24/18 20:29 Blood Peripheral Aerobic Blood Culture - Preliminary Gram Positive Cocci Resulted 03/24/18 20:29 Anaerobic Blood Culture - Preliminary Gram Positive Cocci Resulted 03/25/18 11:32 Cerebral Spinal Fluid Lumbar Puncture Gram Stain - Final Resulted 03/25/18 11:32 Cerebral Spinal Fluid Lumbar Puncture CSF Culture Pending Resulted 03/24/18 21:25 Nasal Washing Influenza Types A,B Antigen (TRINI) - Final NEGATIVE FOR FLU A AND B ANTIGEN.... Complete Result Diagram: 03/25/18 0935 03/25/18 0935 Imaging Last Impressions Chest X-Ray 03/24/18 0000 Signed Impressions: CONCLUSION: Negative examination. Assessment and Plan Assessment and Plan MRSA sepsis Neck pain, h/o C spine instrumentation and infection CXlinical situation highly suspicious for recurretn neck infection Sepsis likley 2/2 cervical spine infection Neurologicallly intact - no e/o endocarditis on periferal exam Cont vancomycin add rifampin 2 D echo Cspine MRI w contrast NS consult if MRI + for infeciton Discussed Condition With pt Gin Lai MD Mar 25, 2018 13:12
[2018-03-25] MEDS ORDERED: LORazepam 1 MG TAB PO ONE (13:30)
--- NOTE | 2018-03-25 14:11 | RADRPT ---
EXAM DATE: 03/25/2018 12:00 PM EDT AGE/SEX: 52 years / Female INDICATIONS: Patient with a history of neck pain and fever. CLINICAL DATA: This is the patient's initial encounter. Patient reports that signs and symptoms have been present for 1 day and indicates a pain score of 9/10. MEDICAL/SURGICAL HISTORY: . . Neck surgery COMPARISON: No prior [facility] exams available for comparison. FLUORO TIME (min): 0.28 IMAGE SERIES: 1 ACCESS SITE: L4-5 LUMBAR PUNCTURE TIME: 1132 hours OPENING PRESSURE: 13.8 cm of water FLUID: Total volume of 10.5 cc of clear fluid was removed. sent to lab for ordered studies. . . PROCEDURE: 1. Fluoroscopic guided lumbar puncture. 2. Recording of opening pressure. The risks, benefits and alternatives to the procedure were explained and verbal and written consent w as obtained. The site was prepped in sterile fashion. Full sterile technique was used, including ca p, mask, sterile gloves and gown and a large sterile sheet. Hand hygiene and 2% chlorhexidine and/or betadine/alcohol prep was utilized per protocol for cutaneous antisepsis. The skin and subcutaneous tissues were infiltrated with local anesthetic solution. With fluoroscopic guidance the lumbar thecal sac was punctured at the above level described above and the opening pressure was recorded. The above described fluid was removed without difficulty. The patient tolerated the procedure well and there were no complications. CONCLUSION: 1. Uncomplicated fluoroscopically guided lumbar puncture with pressures as above. Electronically signed by: Chinedu Lewis MD 03/25/2018 2:10 PM EDT
[2018-03-25] MEDS ORDERED: GADODIAMIDE PF 287 MG/ML 5 ML VIAL (for RAD MRI) IVCONTRAST ONE (14:50)
--- NOTE | 2018-03-25 15:13 | RADRPT ---
EXAM DATE: 03/25/2018 2:57 PM EDT AGE/SEX: 52 years / Female INDICATIONS: Abscess. Neck pain and fever. CLINICAL DATA: This is the patient's subsequent encounter. Patient reports that signs and symptoms h ave been present for 1 month and indicates a pain score of 8/10. MEDICAL/SURGICAL HISTORY: . TIA. Fusion, cervical. Breast implants. COMPARISON: No prior [facility] exams available for comparison. TECHNIQUE: Multiplanar, multisequence MRI examination of the cervical spine was performed without an d with 12 ml Omniscan (gadodiamide) contrast as a single exam dose. FINDINGS: Vertebrae: There has been prior C5 and C6 corpectomy with placement of a intercalated bone graft keysha tebral bodies. Anterior plate and screws extending from C4 through C7. There is no prevertebral edema . Posteriorly hardware is present in the posterior elements at these levels bilaterally. Alignment: No anterolisthesis or retrolisthesis. Cord: There is increased T2 signal within the central anterior aspect of the cord at the C5-C6 level adjacent to the prior surgery. The appearance suggest myelomalacia. No epidural abscess is visualize d. Post Fossa: The cerebellar tonsils are normal in position. The craniocervical junction and C1-C2 level demonstrate no acute abnormality. C2-C3: No disc herniation, canal stenosis, or neural foraminal stenosis. C3-C4: There is mild facet arthrosis. Small posterior disc osteophyte complex is present, largest in a right paracentral location. However, no significant spinal canal stenosis or neural foraminal sten osis is present. C4-C5: No disc herniation, canal stenosis, or neural foraminal stenosis. There is mild susceptibilit y artifact secondary to the hardware C5-C6: No disc herniation, canal stenosis, or neural foraminal stenosis. C6-C7: No disc herniation, canal stenosis, or neural foraminal stenosis. C7-T1: No disc herniation, canal stenosis, or neural foraminal stenosis. Post contrast: No abnormal areas of contrast enhancement are identified. Other: The visualized surrounding structures demonstrate no acute abnormality. CONCLUSION: 1. No epidural abscess is identified and there are no findings to suggest infection. Patient is post C5 and C6 corpectomy with bone graft placement and anterior and posterior hardware placement. Hardwa re demonstrates no acute finding. 2. Abnormal signal within the spinal cord adjacent to the surgery. This most likely represents myelo malacia. 3. No significant spinal canal stenosis or neural foraminal stenosis is identified. Electronically signed by: Isidro Livingston MD 03/25/2018 3:12 PM EDT
[2018-03-25] MEDS: traMADol HCL 50 MG TAB PO PRN ×2 (15:47→23:13)
[2018-03-25] MEDS: NICOTINE 14 MG/24 HR PATCH T-DERMAL SCH (16:54)
[2018-03-25] MEDS ORDERED: IOHEXOL 350 MG/ML 10 ML VIAL (for RAD DIAG) IVCONTRAST ONE (18:42)
--- NOTE | 2018-03-25 19:06 | RADRPT ---
EXAM DATE: 03/25/2018 6:53 PM EDT AGE/SEX: 52 years / Female INDICATIONS: Nausea and fever. CLINICAL DATA: This is the patient's initial encounter. Patient reports that signs and symptoms have been present for 1 day and indicates a pain score of 4/10. MEDICAL/SURGICAL HISTORY: Stroke. Fusion, cervical. ORAL CONTRAST: Prescribed oral contrast ingested. RADIATION DOSE: 5.2 CTDI (mGy) COMPARISON: . TECHNIQUE: Multiple contiguous axial images were obtained through the abdomen and pelvis following b olus infusion of 75 ml Omnipaque 350 (iohexol) nonionic water-soluble contrast as a single exam dos e. Prescribed oral contrast ingested. Using automated exposure control and adjustment of the mA and/ or kV according to patient size, the radiation dose was kept as low as reasonably achievable to obtai n optimal diagnostic quality images. FINDINGS: Lower Lungs: The visualized lower lungs are clear. Liver: The liver has a homogeneous density without space-occupying lesion. There is no dilation of th e biliary tree. Spleen: Homogeneous density without enlargement. Pancreas: Unremarkable without mass or calcification. Kidneys: Normal in size and shape. No evidence of mass or hydronephrosis. Adrenal Glands: Unremarkable. Aorta: The aorta and proximal iliac vessels are grossly unremarkable without aneurysmal dilation. Bowel/Mesentery: The bowel loops are grossly unremarkable. The cecum and sigmoid colon have a normal configuration. Abdominal Wall: Intact. Retroperitoneum: No evidence of adenopathy in the retrocrural, para-aortic, or deep pelvic regions. Bladder: Contours are smooth. Reproductive Organs: Trace amount of free fluid within the cul-de-sac. Uterus is anteverted. There i s a dilated left gonadal vein measuring 9 mm. Pelvic varicosities bilaterally. No abnormal masses or calcifications seen. Inguinal: The inguinal region is unremarkable without evidence of adenopathy. Bony Structures: Pectus excavatum deformity.. CONCLUSION: 1. Trace amount of free fluid within the cul-de-sac. 2. No acute abnormality . 3. Dilated gonadal vein with pelvic varicosities. This can be seen in pelvic congestion syndrome. 4. Pectus excavatum. Electronically signed by: Chinedu Lewis MD 03/25/2018 7:05 PM EDT
--- NOTE | 2018-03-25 19:07 | EKG ---
Date Performed: 03/24/2018 Time Performed: 20:16:04 PTAGE: 52 years EKG: Sinus rhythm ST DEVIATION AND MODERATE T-WAVE ABNORMALITY ABNORMAL ECG NO PREVIOUS TRACING DOCTOR: Ivett Meza Interpretating Date/Time 03/25/2018 19:07:05
[2018-03-25] MEDS: REMOVE OLD LIDOCAINE PATCH T-DERMAL SCH (21:00)
[2018-03-25] MEDS: ONDANSETRON ODT 4 MG TAB PO PRN (21:11)
[2018-03-26] MEDS: VANCOMYCIN INJ 1,250 MG in SODIUM CHLOR 0.9% 250 ML INJ 250 ML IV SCH ×2 (00:57→14:22)
[2018-03-26 03:34] VITALS: BP 120/72; PULSE 53; RESP 18; TEMP 99.1; O2SAT 98
[2018-03-26 05:53] LABS: BICARBONATE 24.1 MEQ/L (21.0-32.0); CALCIUM 8.5 MG/DL (8.5-10.1); CREATININE 0.47 MG/DL (0.50-1.00)
[2018-03-26 06:03] LABS: AUTOMATED NEUTROPHIL # 5.2 TH/MM3 (1.8-7.7); BASOPHIL # 0.1 TH/MM3 (0-0.2); BASOPHIL % 0.7 % (0.0-2.0); EOSINOPHIL # 0.2 TH/MM3 (0-0.4); EOSINOPHIL % 2.8 % (0.0-4.0); HEMATOCRIT 38.5 % (35.0-46.0); HEMOGLOBIN 13.2 GM/DL (11.6-15.3); LYMPH % 23.9 % (9.0-44.0); LYMPHOCYTE # 1.8 TH/MM3 (1.0-4.8); MEAN CELL VOLUME 86.6 FL (80.0-100.0); MEAN CORPUSCULAR HEMOGLOBIN 29.6 PG (27.0-34.0); MEAN CORPUSCULAR HGB CONC 34.2 % (32.0-36.0); MEAN PLATELET VOLUME 7.5 FL (7.0-11.0); MONO % 4.5 % (0.0-8.0); MONOCYTE # 0.3 TH/MM3 (0-0.9); NEUT % 68.1 % (16.0-70.0); PLATELET COUNT 241 TH/MM3 (150-450); RED BLOOD COUNT 4.45 MIL/MM3 (4.00-5.30); RED CELL DISTRIBUTION WIDTH 13.8 % (11.6-17.2); WHITE BLOOD COUNT 7.6 TH/MM3 (4.0-11.0)
[2018-03-26] MEDS: traMADol HCL 50 MG TAB PO PRN ×3 (07:20→23:42)
[2018-03-26 07:49] VITALS: BP 128/67; PULSE 69; RESP 16; TEMP 97.8; O2SAT 95
[2018-03-26] MEDS ORDERED: REMOVE OLD PATCH T-DERMAL SCH (09:00)
[2018-03-26] MEDS ORDERED: RIFAMPIN 150 MG CAP PO SCH (09:00)
[2018-03-26] MEDS: SODIUM CHLORIDE 0.9% FLUSH 10 ML FLUSH IV FLUSH SCH ×2 (09:00→20:46)
[2018-03-26] MEDS: NICOTINE 14 MG/24 HR PATCH T-DERMAL SCH (10:33)
[2018-03-26] MEDS: LIDOCAINE HCL 5% PATCH T-DERMAL SCH (10:33)
[2018-03-26] MEDS: SODIUM CHLOR 0.9% 1000 ML INJ 1,000 ML IV SCH ×2 (10:34→17:19)
[2018-03-26 11:00] VITALS: BP 114/67; PULSE 62; RESP 16; TEMP 98; O2SAT 97
--- NOTE | 2018-03-26 13:10 | HHI.IDPN ---
Subjective Subjective Remarks MRI showed myelomalacia. Seen by Dr Crooks: cw old changes no active infection Today c/o excruciating sinus pain and headache CSF wnl Antibiotics vancomycin rifampin Allergies: Coded Allergies: codeine (Unverified Allergy, Intermediate, EDEMA AND VOMITING, 03/24/18) Objective . Vital Signs Date Time Temp Pulse Resp B/P (MAP) Pulse Ox O2 Delivery O2 Flow Rate FiO2 03/26/18 11:00 98.0 62 16 114/67 (83) 97 03/26/18 07:49 97.8 69 16 128/67 (87) 95 03/26/18 03:34 99.1 53 18 120/72 (88) 98 03/25/18 23:45 98.2 83 20 122/67 (85) 98 03/25/18 20:00 98.7 72 18 128/68 (88) 98 03/25/18 15:34 97.7 85 20 103/65 (78) 98 . Laboratory Tests Test 03/24/18 20:29 03/25/18 09:35 03/25/18 16:30 03/26/18 05:02 White Blood Count 10.3 TH/MM3 11.8 TH/MM3 7.6 TH/MM3 Red Blood Count 4.69 MIL/MM3 4.40 MIL/MM3 4.45 MIL/MM3 Hemoglobin 13.9 GM/DL 12.7 GM/DL 13.2 GM/DL Hematocrit 40.4 % 37.9 % 38.5 % Mean Corpuscular Volume 86.1 FL 86.0 FL 86.6 FL Mean Corpuscular Hemoglobin 29.7 PG 28.8 PG 29.6 PG Mean Corpuscular Hemoglobin Concent 34.5 % 33.5 % 34.2 % Red Cell Distribution Width 13.8 % 14.0 % 13.8 % Platelet Count 301 TH/MM3 280 TH/MM3 241 TH/MM3 Mean Platelet Volume 7.3 FL 7.2 FL 7.5 FL Neutrophils (%) (Auto) 84.9 % 68.1 % Lymphocytes (%) (Auto) 10.2 % 23.9 % Monocytes (%) (Auto) 4.3 % 4.5 % Eosinophils (%) (Auto) 0.2 % 2.8 % Basophils (%) (Auto) 0.4 % 0.7 % Neutrophils # (Auto) 8.7 TH/MM3 5.2 TH/MM3 Lymphocytes # (Auto) 1.0 TH/MM3 1.8 TH/MM3 Monocytes # (Auto) 0.4 TH/MM3 0.3 TH/MM3 Eosinophils # (Auto) 0.0 TH/MM3 0.2 TH/MM3 Basophils # (Auto) 0.0 TH/MM3 0.1 TH/MM3 CBC Comment DIFF FINAL DIFF FINAL Differential Comment Erythrocyte Sedimentation Rate 17 mm/hr Hematology Comments Laboratory Tests Test 03/24/18 20:29 03/24/18 21:25 03/25/18 09:35 03/26/18 05:02 Blood Urea Nitrogen 7 MG/DL 6 MG/DL 5 MG/DL Creatinine 0.78 MG/DL 0.51 MG/DL 0.47 MG/DL Random Glucose 104 MG/DL 118 MG/DL 120 MG/DL Total Protein 8.2 GM/DL Albumin 3.9 GM/DL Calcium Level 9.3 MG/DL 7.7 MG/DL 8.5 MG/DL Alkaline Phosphatase 128 U/L Aspartate Amino Transf (AST/SGOT) 16 U/L Alanine Aminotransferase (ALT/SGPT) 24 U/L Total Bilirubin 0.7 MG/DL Sodium Level 132 MEQ/L 141 MEQ/L 141 MEQ/L Potassium Level 3.2 MEQ/L 3.5 MEQ/L 3.5 MEQ/L Chloride Level 96 MEQ/L 109 MEQ/L 108 MEQ/L Carbon Dioxide Level 25.3 MEQ/L 23.7 MEQ/L 24.1 MEQ/L Anion Gap 11 MEQ/L 8 MEQ/L 9 MEQ/L Estimat Glomerular Filtration Rate 77 ML/MIN 126 ML/MIN 139 ML/MIN Lactic Acid Level 0.9 mmol/L 1.1 mmol/L Total Creatine Kinase 32 U/L Troponin I LESS THAN 0.02 NG/ML C-Reactive Protein 10.90 MG/DL Lipase 82 U/L Microbiology Date/Time Source Procedure Growth Status 03/26/18 05:06 Blood Peripheral Aerobic Blood Culture Pending Received 03/26/18 05:06 Blood Peripheral Anaerobic Blood Culture Pending Received 03/26/18 05:02 Blood Peripheral Aerobic Blood Culture Pending Received 03/26/18 05:02 Blood Peripheral Anaerobic Blood Culture Pending Received 03/24/18 20:29 Blood Peripheral Aerobic Blood Culture - Preliminary S. Aureus Mrsa Resulted 03/24/18 20:29 Anaerobic Blood Culture - Preliminary S. Aureus Mrsa Resulted 03/24/18 20:29 Blood Peripheral Aerobic Blood Culture - Preliminary S. Aureus Mrsa Resulted 03/24/18 20:29 Anaerobic Blood Culture - Preliminary S. Aureus Mrsa Resulted 03/25/18 11:32 Cerebral Spinal Fluid Lumbar Puncture Gram Stain - Final Resulted 03/25/18 11:32 Cerebral Spinal Fluid Lumbar Puncture CSF Culture - Preliminary NO GROWTH IN 24 HOURS. Resulted 03/24/18 21:25 Nasal Washing Influenza Types A,B Antigen (TRINI) - Final NEGATIVE FOR FLU A AND B ANTIGEN.... Complete Imaging Last Impressions Lumbar Puncture Fluoroscopy 03/25/18 0000 Signed Impressions: CONCLUSION: 1. Uncomplicated fluoroscopically guided lumbar puncture with pressures as abo ve. Cervical Spine MRI 03/25/18 Signed Impressions: CONCLUSION: 1. No epidural abscess is identified and there are no findings to suggest infe ction. Patient is post C5 and C6 corpectomy with bone graft placement and anter ior and posterior hardware placement. Hardware demonstrates no acute finding. 2. Abnormal signal within the spinal cord adjacent to the surgery. This most l ikely represents myelomalacia. 3. No significant spinal canal stenosis or neural foraminal stenosis is identi fied. Abdomen/Pelvis CT 03/25/18 Signed Impressions: CONCLUSION: 1. Trace amount of free fluid within the cul-de-sac. 2. No acute abnormality . 3. Dilated gonadal vein with pelvic varicosities. 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 4. Pectus excavatum. Chest X-Ray 03/24/18 Signed Impressions: CONCLUSION: Negative examination. Physical Exam CONSTITUTIONAL/GENERAL: This is an adequately nourished patient, in some apparent distress 2/2 headache TUBES/LINES/DRAINS: SKIN: No jaundice, rashes, or lesions. Skin temperature appropriate. Not diaphoretic. HEAD: Atraumatic. Normocephalic. EYES: Pupils equal and round and reactive. Extraocular motions intact. No scleral icterus. No injection or drainage. Fundi not examined. ENT: Hearing grossly normal. Nose without bleeding or purulent drainage. Throat without visible erythema, exudates, masses, or lesions. NECK: Trachea midline. Supple, tender to palpation. Well healed scar posterior neck. No edema, erythema, drainage CARDIOVASCULAR: Regular rate and rhythm without murmurs, gallops, or rubs. No JVD. Peripheral pulses symmetric. RESPIRATORY/CHEST: Symmetric, unlabored respirations. Clear to auscultation. Breath sounds equal bilaterally. No wheezes, rales, or rhonchi. GASTROINTESTINAL: Abdomen soft, non-tender, nondistended. No hepato-splenomegaly , or palpable masses. No guarding. Bowel sounds present. MUSCULOSKELETAL: Extremities without clubbing, cyanosis, or edema. No joint tenderness or effusion noted. No calf tenderness. No mottling or clubbing. NEUROLOGICAL: Awake and alert. Motor and sensory grossly within normal limits. Follows commands. Cognitively sharp. Moves all extremities. PSYCHIATRIC: No obvious anxiety/depression. no apparent hallucinations or other psychotic thought process. Assessment & Plan Remarks MRSA sepsis Neck pain, h/o C spine instrumentation and infection no e/o abscess on MRI - CSF neg Headache - no e/o endocarditis on periferal exam Cont vancomycin dc rifampin 2 D echo Brain MRI ([facility]) Discussed Condition With Gin Foster MD Mar 26, 2018 13:10
--- NOTE | 2018-03-26 13:19 | HHI.PR ---
Subjective Remarks Follow up bacteremia, headache. Patient reporting "sinus congestion". Denies fever, chills, night sweats. Denies chest pain, dyspnea. She is having pain in the left thoracic region radiating around to the left anterior ribcage. Objective Vitals Vital Signs Date Time Temp Pulse Resp B/P (MAP) Pulse Ox O2 Delivery O2 Flow Rate FiO2 03/26/18 11:00 98.0 62 16 114/67 (83) 97 03/26/18 07:49 97.8 69 16 128/67 (87) 95 03/26/18 03:34 99.1 53 18 120/72 (88) 98 03/25/18 23:45 98.2 83 20 122/67 (85) 98 03/25/18 20:00 98.7 72 18 128/68 (88) 98 03/25/18 15:34 97.7 85 20 103/65 (78) 98 I/O 03/25/18 03/25/18 03/25/18 03/26/18 03/26/18 03/26/18 07:00 15:00 23:00 07:00 15:00 23:00 Intake Total 960 ml 720 ml Balance 960 ml 720 ml Intake Oral 960 ml 720 ml # Voids 3 3 # Bowel Movements 0 0 Result Diagram: 03/26/18 0502 03/26/18 0502 Imaging Last Impressions Lumbar Puncture Fluoroscopy 03/25/18 0000 Signed Impressions: CONCLUSION: 1. Uncomplicated fluoroscopically guided lumbar puncture with pressures as abo ve. Cervical Spine MRI 03/25/18 0000 Signed Impressions: CONCLUSION: 1. No epidural abscess is identified and there are no findings to suggest infe ction. Patient is post C5 and C6 corpectomy with bone graft placement and anter ior and posterior hardware placement. Hardware demonstrates no acute finding. 2. Abnormal signal within the spinal cord adjacent to the surgery. This most l ikely represents myelomalacia. 3. No significant spinal canal stenosis or neural foraminal stenosis is identi fied. Abdomen/Pelvis CT 03/25/18 0000 Signed Impressions: CONCLUSION: 1. Trace amount of free fluid within the cul-de-sac. 2. No acute abnormality . 3. Dilated gonadal vein with pelvic varicosities. 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 4. Pectus excavatum. Chest X-Ray 03/24/18 0000 Signed Impressions: CONCLUSION: Negative examination. Objective Remarks General: No acute distress. Heart: Regular rate and rhythm. No murmur. Lungs: Clear to auscultation bilaterally. No wheezes, rales, or rhonchi. Breathing is nonlabored. Abdomen: Soft, nontender, nondistended. Back: Tenderness in the midthoracic region. Lidoderm patch in place. Extremities: No lower extremity edema. Psych: Alert and oriented. Neuro: Normal speech. No focal deficits noted. Procedures 03/25/18 lumbar puncture Urinary Catheter: No Vascular Central Line Catheter: No A/P Assessment and Plan 1. Bacteremia: Blood cultures growing MRSA. Appreciate infectious disease recommendations. Continue vancomycin IV. Repeat blood cultures are pending. 2. Back and neck pain: Patient has history of spinal infection. Appreciate neurosurgery recommendations. Lidoderm patch ordered. 3. Abdominal pain, vaginal bleeding: Patient had vaginal bleeding on the day of admission. 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 Consult gynecology. 4. Sinus pressure: Add Flonase. 5. DVT prophylaxis: SCDs. Avoid chemical prophylaxis as patient just had lumbar puncture. Antonio Mcconnell MD Mar 26, 2018 13:19
[2018-03-26] MEDS ORDERED: LORazepam 1 MG TAB PO ONE (13:40)
[2018-03-26] MEDS: FLUTICASONE PROPIONATE 50 MCG/ACT 16 GM NASAL SPRAY NASAL SCH (14:23)
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
[2018-03-26 14:54] VITALS: BP 133/70; PULSE 64; RESP 20; TEMP 98.8; O2SAT 98
[2018-03-26] MEDS ORDERED: GADODIAMIDE PF 287 MG/ML 5 ML VIAL (for RAD MRI) IVCONTRAST ONE (16:03)
--- NOTE | 2018-03-26 16:18 | PD.CONS ---
[facility] Service Neurosurgery Consult Requested By Dr Lai Reason for Consult Myelomalasia Primary Care Physician No Primary Care Physician History of Present Illness This is a 52-year-old female who presents to [place] emergency department for evaluation of fever. Patient reports at home her fever was 103. She endorses nausea and associated vomiting 5 or 6 episodes. She denies any chest pain or shortness of breath. She has a history of an anterior cervical fusion as well as a posterior cervical fusion in the past with good results. Apparently she had severe stenosis with compression of the spinal cord and I suspect a chronic area of myelomalacia. Denies cough or rhinorrhea. No abdominal pain. In the ED the patient was noted to have multiple small wounds in the bilateral upper extremities that were suspicious for track aguilar. She denies any IV drug abuse. Vital signs: She denies any neck pain. She denies any low back pain or thoracic pain. She denies any weakness on her R Lower extremities. She denies any sensory loss. She denies any incontinence or stool or urinary retention. Her Temperature was 102.9. MRI of the cervical spine did not show any evidence of spinal infection, however she has a small area of myelomalacia. Neurosurgical consultation was requested, Review of Systems Constitutional: COMPLAINS OF: Fatigue, Fever, Chills, DENIES: Diaphoretic episodes, Weight gain, Weight loss, Dizziness, Change in appetite, Night Sweats Endocrine: DENIES: Abnorml menstrual pattern, Heat/cold intolerance, Polydipsia , Polyuria, Polyphagia Eyes: DENIES: Blurred vision, Diplopia, Eye inflammation, Eye pain, Vision loss , Photosensitivity, Double Vision Ears, nose, mouth, throat: DENIES: Tinnitus, Hearing loss, Vertigo, Nasal discharge, Oral lesions, Throat pain, Hoarseness, Ear Pain, Running Nose, Epistaxis, Sinus Pain, Toothache, Odynophagia Respiratory: DENIES: Apneas, Cough, Snoring, Wheezing, Hemoptysis, Sputum production, Shortness of breath Cardiovascular: DENIES: Chest pain, Palpitations, Syncope, Dyspnea on Exertion , PND, Lower Extremity Edema, Orthopnea, Claudication Gastrointestinal: DENIES: Abdominal pain, Black stools, Bloody stools, Constipation, Diarrhea, Nausea, Vomiting, Difficulty Swallowing, Anorexia Genitourinary: DENIES: Abnormal vaginal bleeding, Dysmenorrhea, Dyspareunia, Sexual dysfunction, Urinary frequency, Urinary incontinence, Urgency, Hematuria , Dysuria, Nocturia, Vaginal discharge Musculoskeletal: DENIES: Joint pain, Muscle aches, Stiffness, Joint Swelling, Back pain, Neck pain Integumentary: DENIES: Abnormal pigmentation, Pruritus, Rash, Nail changes, Breast masses, Breast skin changes, Nipple discharge Immunologic/allergic: DENIES: Eczema, Urticaria Neurologic: DENIES: Abnormal gait, Headache, Localized weakness, Paresthesias, Seizures, Speech Problems, Tremor, Poor Balance Past Family Social History Allergies: Coded Allergies: codeine (Unverified Allergy, Intermediate, EDEMA AND VOMITING, 03/24/18) Past Medical History Caprini VTE Risk Assessment Caprini VTE Risk Assessment: No/Low Risk (score <= 1) Caprini Risk Assessment Model Point Value = 1 Point Value = 2 Point Value = 3 Point Value = 5 Age 41-60 Minor surgery BMI > 25 kg/m2 Swollen legs Varicose veins or History of unexplained or recurrent spontaneous Oral contraceptives or hormone replacement Sepsis (< 1 month) Serious lung disease, including pneumonia (< 1 month) Abnormal pulmonary function Acute myocardial infarction Congestive heart failure (< 1 month) History of inflammatory bowel disease Medical patient at bed rest Age 61-74 Arthroscopic surgery Major open surgery (> 45 min) Laparoscopic surgery (> 45 min) Malignancy Confined to bed (> 72 hours) Immobilizing plaster cast Central venous access Age >= 75 History of VTE Family history of VTE Factor V Leiden Prothrombin [id number] Lupus anticoagulant Anticardiolipin antibodies Elevated serum homocysteine Heparin-induced thrombocytopenia Other congenital or acquired thrombophilia Stroke (< 1 month) Elective arthroplasty Hip, pelvis, or leg fracture Acute spinal cord injury (< 1 month) Prophylaxis Regimen Total Risk Factor Score Risk Level Prophylaxis Regimen 0-1 Low Early ambulation 2 Moderate Order ONE of the following: *Sequential Compression Device (SCD) *Heparin 5000 units SQ BID 3-4 Higher Order ONE of the following medications: *Heparin 5000 units SQ TID *Enoxaparin/Lovenox 40 mg SQ daily (WT < 150 kg, CrCl > 30 mL/min) *Enoxaparin/Lovenox 30 mg SQ daily (WT < 150 kg, CrCl > 10-29 mL/min) *Enoxaparin/Lovenox 30 mg SQ BID (WT < 150 kg, CrCl > 30 mL/min) AND/OR *Sequential Compression Device (SCD) 5 or more Highest Order ONE of the following medications: *Heparin 5000 units SQ TID (Preferred with Epidurals) *Enoxaparin/Lovenox 40 mg SQ daily (WT < 150 kg, CrCl > 30 mL/min) *Enoxaparin/Lovenox 30 mg SQ daily (WT < 150 kg, CrCl > 10-29 mL/min) *Enoxaparin/Lovenox 30 mg SQ BID (WT < 150 kg, CrCl > 30 mL/min) AND *Sequential Compression Device (SCD) Assessment and Plan Assessment and Plan Assessment/plan: 1. Fever Unknown origin Chest x-ray negative for acute process, personally reviewed UA negative Blood cultures pending Given multiple wounds on bilateral upper extremities, suspicion for IV drug abuse. Patient will be admitted to observation until blood cultures return out of concern for bacteremia. 2. Hypokalemia Status post p.o. supplementation Monitor [facility] [employer] healthy diet Electrolytes: As above NS at 100 cc/hour Past Surgical History Anterior and posterior cervical fusion Active Ordered Medications Current Medications Sodium Chloride 1,000 ml @ 999 mls/hr BOLUS ONCE IV Last administered on at 21:36; Start 03/24/18 at 21:30; Stop 03/24/18 at 22:30; Status DC Acetaminophen (Tylenol) 650 mg ONCE ONCE PO Last administered on 03/24/18 21: 37; Start 03/24/18 at 21:30; Stop 03/24/18 at 21:31; Status DC Ondansetron HCl (Zofran Odt) 4 mg ONCE ONCE PO Last administered on 03/24/18 21:37; Start 03/24/18 at 21:30; Stop 03/24/18 at 21:31; Status DC Sodium Chloride 1,000 ml @ 999 mls/hr BOLUS ONCE IV Last administered on at 21:37; Start 03/24/18 at 21:30; Stop 03/24/18 at 22:30; Status DC Sodium Chloride 1,000 ml @ 100 mls/hr Q10H IV Last administered on 03/26/18at 10 :34; Start 03/25/18 at 01:19 Sodium Chloride (NS Flush) 2 ml UNSCH PRN IV FLUSH FLUSH AFTER USING IV ACCESS ; Start 03/25/18 at 01:30 Sodium Chloride (NS Flush) 2 ml BID IV FLUSH Last administered on 03/25/18at 21: 11; Start 03/25/18 at 09:00 Acetaminophen (Tylenol) 650 mg Q4H PRN PO TEMP > 100.4 Last administered on 03/25 21:03; Start 03/25/18 at 01:30 Naloxone HCl (Narcan Inj) 0.4 mg UNSCH PRN IV PUSH SEE LABEL COMMENTS; Start at 01:30 Potassium Chloride (KCl) 30 meq ONCE ONCE PO Last administered on 03/25/18 02: 00; Start 03/25/18 at 01:30; Stop 03/25/18 at 01:31; Status DC Lidocaine HCl (Lidoderm 5% Patch.12 Hr) 1 patch DAILY T-DERMAL Last administered on 03/26/18 10:33; Start 03/25/18 at 09:15 Miscellaneous Information 1 Q24H T-DERMAL Last administered on 03/25/18 21:00; Start 03/25/18 at 21:00 Ondansetron HCl (Zofran Odt) 4 mg Q8HR PRN PO N/V Last administered on 21:11; Start 03/25/18 at 09:30 Diatrizoate Meglum/ Diatrizoate Sod ( Gastroview Liq) 18 ml ONCE ONCE PO Last administered on 03/25/18at 12:36; Start 03/25/18 at 11:00; Stop 03/25/18 at 11: 01; Status DC Pharmacy Profile Note 0 ml @ 0 mls/hr UNSCH OTHER ; Start 03/25/18 at 11:30 Vancomycin HCl 1000 mg/Sodium Chloride 250 ml @ 250 mls/hr ONCE ONCE IV Last administered on 03/25/18at 15:15; Start 03/25/18 at 12:30; Stop 03/25/18 at 13:50; Status DC Lorazepam (Ativan) 1 mg ONCE ONCE PO Last administered on 03/25/18at 14:01; Start 03/25/18 at 13:30; Stop 03/25/18 at 13:50; Status DC Vancomycin HCl 1250 mg/Sodium Chloride 262.5 ml @ 250 mls/hr Q12H IV Last administered on 03/26/18at 14:22; Start 03/26/18 at 01:00 Miscellaneous Information ([facility] Ordered Lab Info) SPECIFIC LAB TO BE DRAWN:VANCO TROUGH DATE TO BE DRBrayden.. ONCE ONCE .XX ; Start 03/27/18 at 00:45; Stop 03/27/18 at 00:46 Rifampin (Rifampin) 300 mg Q12HR PO Last administered on 03/26/18at 10:32; Start 03/26/18 at 09:00; Stop 03/26/18 at 13:12; Status DC Gadodiamide (Omniscan Pf Inj) 12 ml STK-MED ONCE IVCONTRAST Last administered on 03/25/18at 14:50; Start 03/25/18 at 14:50; Stop 03/25/18 at 14:51; Status DC Tramadol HCl (Ultram) 50 mg Q8H PRN PO PAIN 6-10 Last administered on 03/26/18at 15:26; Start 03/25/18 at 15:30 Nicotine (Habitrol 14 Mg Patch.24 Hr) 1 patch DAILY T-DERMAL Last administered on 03/26/18at 10:33; Start 03/25/18 at 16:45 Miscellaneous Information 1 DAILY T-DERMAL ; Start 03/26/18 at 09:00; Status Cancel Iohexol (Omnipaque 350 Inj) 75 ml STK-MED ONCE IVCONTRAST Last administered on 03/25/18at 18:42; Start 03/25/18 at 18:42; Stop 03/25/18 at 18:43; Status DC Miscellaneous Information 1 HS T-DERMAL ; Start 03/26/18 at 21:00 Fluticasone Propionate (Flonase Shawn Spr) 2 spray DAILY NASAL Last administered on 03/26/18at 14:23; Start 03/26/18 at 13:15 Lorazepam (Ativan) 1 mg ONCE ONCE PO Last administered on 03/26/18at 15:25; Start 03/26/18 at 13:40; Stop 03/26/18 at 13:41; Status DC Gadodiamide (Omniscan Pf Inj) 12 ml STK-MED ONCE IVCONTRAST Last administered on 03/26/18at 16:03; Start 03/26/18 at 16:03; Stop 03/26/18 at 16:04; Status DC Family History Family history was reviewed and was noncontributory to current admission Social History Occasional tobacco use. She denies alcohol use. She denies illicit drug use Physical Exam Vital Signs Vital Signs Date Time Temp Pulse Resp B/P (MAP) Pulse Ox O2 Delivery O2 Flow Rate FiO2 03/26/18 14:54 98.8 64 20 133/70 (91) 98 03/26/18 11:00 98.0 62 16 114/67 (83) 97 03/26/18 07:49 97.8 69 16 128/67 (87) 95 03/26/18 03:34 99.1 53 18 120/72 (88) 98 03/25/18 23:45 98.2 83 20 122/67 (85) 98 03/25/18 20:00 98.7 72 18 128/68 (88) 98 Physical Exam GENERAL White female lying in bed SKIN: Multiple small wounds, bilateral forearms without signs of infection HEAD: Atraumatic. Normocephalic. No temporal or scalp tenderness. EYES: Pupils equal round and reactive. Extraocular motions intact. No scleral icterus. No injection or drainage. ENT: Nose without bleeding, purulent drainage or septal hematoma. Throat without erythema, tonsillar hypertrophy or exudate. Uvula midline. Airway patent. NECK: Trachea midline. No JVD or lymphadenopathy. Supple, nontender, no meningeal signs. CARDIOVASCULAR: Regular rate and rhythm without murmurs, gallops, or rubs. RESPIRATORY: Clear to auscultation. Breath sounds equal bilaterally. No wheezes , rales, or rhonchi. GASTROINTESTINAL: Abdomen soft, non-tender, nondistended. No hepato-splenomegaly , or palpable masses. No guarding. MUSCULOSKELETAL: Extremities without clubbing, cyanosis, or edema. No joint tenderness, effusion, or edema noted. No calf tenderness. NEUROLOGICAL: alert, awake and oriented to time, place and person. Speech is fluent. Cranial nerve examination: pupils to be equal, round and reactive to light. Extra-ocular movements are intact. Facial motor and sensory function are normal and symmetrical. Gross hearing appears intact. Sternocleidomastoid and trapezius muscles are symmetrical. Other cranial nerves are intact. Neck is soft and supple with a good range of motion without pain. Muscle strength is normal in all muscle groups of both upper and lower extremities. Sensory examination is intact to light touch and pin prick in both the upper and lower extremities. Deep tendon reflexes are symmetrical in both upper and lower extremities. There is a bilateral plantar flexion response. Cerebellar examination is unremarkable, without deficits. Laboratory Laboratory Tests Test 03/25/18 16:30 03/26/18 05:02 Erythrocyte Sedimentation Rate 17 White Blood Count 7.6 Red Blood Count 4.45 Hemoglobin 13.2 Hematocrit 38.5 Mean Corpuscular Volume 86.6 Mean Corpuscular Hemoglobin 29.6 Mean Corpuscular Hemoglobin Concent 34.2 Red Cell Distribution Width 13.8 Platelet Count 241 Mean Platelet Volume 7.5 Neutrophils (%) (Auto) 68.1 Lymphocytes (%) (Auto) 23.9 Monocytes (%) (Auto) 4.5 Eosinophils (%) (Auto) 2.8 Basophils (%) (Auto) 0.7 Neutrophils # (Auto) 5.2 Lymphocytes # (Auto) 1.8 Monocytes # (Auto) 0.3 Eosinophils # (Auto) 0.2 Basophils # (Auto) 0.1 CBC Comment DIFF FINAL Differential Comment Hematology Comments Blood Urea Nitrogen 5 Creatinine 0.47 Random Glucose 120 Calcium Level 8.5 Sodium Level 141 Potassium Level 3.5 Chloride Level 108 Carbon Dioxide Level 24.1 Anion Gap 9 Estimat Glomerular Filtration Rate 139 Date/Time Source Procedure Growth Status 03/26/18 05:06 Blood Peripheral Aerobic Blood Culture Pending Received 03/26/18 05:06 Blood Peripheral Anaerobic Blood Culture Pending Received 03/25/18 11:32 Cerebral Spinal Fluid Lumbar Puncture Gram Stain - Final Resulted 03/25/18 11:32 Cerebral Spinal Fluid Lumbar Puncture CSF Culture - Preliminary NO GROWTH IN 24 HOURS. Resulted 03/24/18 21:25 Nasal Washing Influenza Types A,B Antigen (TRINI) - Final NEGATIVE FOR FLU A AND B ANTIGEN.... Complete Result Diagram: 03/26/18 0502 03/26/18 0502 Attending Statement Last 48 hours Impressions Lumbar Puncture Fluoroscopy 03/25/18 0000 Signed Impressions: CONCLUSION: 1. Uncomplicated fluoroscopically guided lumbar puncture with pressures as abo ve. Cervical Spine MRI 03/25/18 0000 Signed Impressions: CONCLUSION: 1. No epidural abscess is identified and there are no findings to suggest infe ction. Patient is post C5 and C6 corpectomy with bone graft placement and anter ior and posterior hardware placement. Hardware demonstrates no acute finding. 2. Abnormal signal within the spinal cord adjacent to the surgery. This most l ikely represents myelomalacia. 3. No significant spinal canal stenosis or neural foraminal stenosis is identi fied. Abdomen/Pelvis CT 03/25/18 0000 Signed Impressions: CONCLUSION: 1. Trace amount of free fluid within the cul-de-sac. 2. No acute abnormality . 3. Dilated gonadal vein with pelvic varicosities. 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 4. Pectus excavatum. I reviewed her clinical and radiological findings. I do not see any evidence of infection to her spine. I do not see any indication for a surgical procedure There is evidence of sepsis. She has positive blood cultures. I do not see any clinical evidence of meningitis. Recommend follow-up blood cultures and aggressive intravenous antibiotic treatment Pulmonary..aggressive pulmonary toilette, nasotracheal suction, and breathing treatments with nebulizers. Nutrition. Oral diet Renal. monitor closely urine output, BUN and creatinine Endocrine. Monitor serial Acu checks and SSI as needed in detail ID monitor for signs of infection Protonix for stress ulcer prophylaxis Ad hose and SCD's for DVT prophylaxis. Further recommendations will depend on his clinical evolution and follow up Studies Elías Crooks MD Mar 26, 2018 16:18
--- NOTE | 2018-03-26 16:58 | RADRPT ---
EXAM DATE: 03/26/2018 4:18 PM EDT AGE/SEX: 52 years / Female INDICATIONS: Cephalgia. CLINICAL DATA: This is the patient's subsequent encounter. Patient reports that signs and symptoms h ave been present for 2 days and indicates a pain score of 6/10. MEDICAL/SURGICAL HISTORY: . IV Drug abuse. Fusion, cervical. Breast implants. COMPARISON: No prior exams available for comparison. TECHNIQUE: Multiplanar, multisequence examination of the brain was performed without and with 12 ml O mniscan (gadodiamide) contrast as a single exam dose. FINDINGS: There is no evidence for intracranial hemorrhage, mass effect, mass lesions, edema, or extra-axial fl uid collections. The ventricles are prominent probably due to atrophic changes. There are no signs of acute infarction for technique. The diffusion portion, and postcontrast portion are unremarkable. Slight degree of brain atrophy is seen. Slight periventricular white matter changes are seen nonspec ific mostly consistent with chronic small vessel ischemic changes. There is extensive opacification o f the right sphenoid sinus and aerated petrous apex on the right. There is a small venous angioma in the left frontoparietal junction. CONCLUSION: 1. Chronic small vessel ischemic and atrophic changes. 2. Small venous angioma on the left and chronic sinusitis as above. Electronically signed by: Gregory Dawson MD 03/26/2018 4:57 PM EDT
[2018-03-26] MEDS: ONDANSETRON ODT 4 MG TAB PO PRN (18:24)
[2018-03-26 19:32] VITALS: BP 135/68; PULSE 63; RESP 16; TEMP 99.5; O2SAT 95
[2018-03-26] MEDS ORDERED: ACETAMIN 325 MG/BUTALBITAL 50 MG/CAFFEINE 40 MG TAB PO ONE (20:45)
[2018-03-26] MEDS: REMOVE OLD NICODERM (NICOTINE) PATCH T-DERMAL SCH (20:53)
[2018-03-26] MEDS: REMOVE OLD LIDOCAINE PATCH T-DERMAL SCH (20:53)
[2018-03-26 23:25] VITALS: BP 122/75; PULSE 69; RESP 16; TEMP 97.6; O2SAT 98
[2018-03-27] MEDS ORDERED: PHARMACY ORDERED LAB ONE (00:45)
[2018-03-27] MEDS: VANCOMYCIN INJ 1,250 MG in SODIUM CHLOR 0.9% 250 ML INJ 250 ML IV SCH ×2 (02:32→12:29)
[2018-03-27] MEDS: SODIUM CHLOR 0.9% 1000 ML INJ 1,000 ML IV SCH ×3 (03:19→22:46)
[2018-03-27] MEDS ORDERED: LIDOCAINE HCL 5% PATCH T-DERMAL ONE (04:15)
[2018-03-27] MEDS: ACETAMIN 325 MG/BUTALBITAL 50 MG/CAFFEINE 40 MG TAB PO PRN ×3 (04:19→14:34)
[2018-03-27 05:22] VITALS: PULSE 72; RESP 16
[2018-03-27 08:08] VITALS: BP 140/63; PULSE 54; RESP 18; TEMP 98.6; O2SAT 96
[2018-03-27] MEDS: NICOTINE 14 MG/24 HR PATCH T-DERMAL SCH (09:00)
[2018-03-27] MEDS: traMADol HCL 50 MG TAB PO PRN (09:02)
[2018-03-27] MEDS: FLUTICASONE PROPIONATE 50 MCG/ACT 16 GM NASAL SPRAY NASAL SCH (09:02)
[2018-03-27] MEDS: SODIUM CHLORIDE 0.9% FLUSH 10 ML FLUSH IV FLUSH SCH ×2 (09:02→20:13)
[2018-03-27] MEDS: REMOVE OLD NICODERM (NICOTINE) PATCH T-DERMAL SCH (09:03)
[2018-03-27] MEDS: LIDOCAINE HCL 5% PATCH T-DERMAL SCH (09:03)
[2018-03-27] MEDS ORDERED: DIAZ5 PO (10:34)
[2018-03-27] MEDS ORDERED: OXYC-395 PO (10:34)
--- NOTE | 2018-03-27 11:42 | HHI.PR ---
Subjective Remarks Follow-up on patient with MRSA bacteremia. Patient seen and examined. Patient complaining of left-sided mid thoracic spine pain radiating around to left anterior rib cage. She is also complaining of headache. She reports feeling feverish. She endorses nausea. Denies any vomiting. Continues to have some mild lower abdominal pain. She denies any dysuria. No diarrhea. She is afebrile. Repeat BCX growing GPC in 4/4 bottles. Objective Vitals Vital Signs Date Time Temp Pulse Resp B/P (MAP) Pulse Ox O2 Delivery O2 Flow Rate FiO2 03/27/18 08:08 98.6 54 18 140/63 (88) 96 03/27/18 05:22 72 16 03/27/18 05:19 16 03/27/18 00:42 16 03/26/18 23:25 97.6 69 16 122/75 (91) 98 03/26/18 21:46 18 03/26/18 19:32 99.5 63 16 135/68 (90) 95 03/26/18 14:54 98.8 64 20 133/70 (91) 98 I/O 03/26/18 03/26/18 03/26/18 03/27/18 03/27/18 03/27/18 07:00 15:00 23:00 07:00 15:00 23:00 Intake Total 720 ml Balance 720 ml Intake Oral 720 ml # Voids 3 # Bowel Movements 0 Result Diagram: 03/26/18 0502 03/26/18 0502 Imaging Last Impressions Brain MRI 03/26/18 0000 Signed Impressions: CONCLUSION: 1. Chronic small vessel ischemic and atrophic changes. 2. Small venous angioma on the left and chronic sinusitis as above. Lumbar Puncture Fluoroscopy 03/25/18 0000 Signed Impressions: CONCLUSION: 1. Uncomplicated fluoroscopically guided lumbar puncture with pressures as abo ve. Cervical Spine MRI 03/25/18 0000 Signed Impressions: CONCLUSION: 1. No epidural abscess is identified and there are no findings to suggest infe ction. Patient is post C5 and C6 corpectomy with bone graft placement and anter ior and posterior hardware placement. Hardware demonstrates no acute finding. 2. Abnormal signal within the spinal cord adjacent to the surgery. This most l ikely represents myelomalacia. 3. No significant spinal canal stenosis or neural foraminal stenosis is identi fied. Abdomen/Pelvis CT 03/25/18 0000 Signed Impressions: CONCLUSION: 1. Trace amount of free fluid within the cul-de-sac. 2. No acute abnormality . 3. Dilated gonadal vein with pelvic varicosities. 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 4. Pectus excavatum. Chest X-Ray 03/24/18 0000 Signed Impressions: CONCLUSION: Negative examination. Objective Remarks GENERAL: Thin WDWN female, INAD. Lying in bed. Awake and alert. SKIN: Multiple small wounds, bilateral forearms without signs of infection HEAD: Atraumatic. Normocephalic. +left sided temporal tenderness to palpation. EYES: Pupils equal round and reactive. Extraocular motions intact. No scleral icterus. No injection or drainage. ENT: Nose without bleeding or purulent drainage. Airway patent. MMM. NECK: Trachea midline. CARDIOVASCULAR: Regular rate and rhythm without murmurs, gallops, or rubs. RESPIRATORY: Nonlabored. Clear to auscultation. Breath sounds equal bilaterally. No wheezes, rales, or rhonchi. GASTROINTESTINAL: Abdomen soft, nondistended. +tenderness to palpation RLQ. No hepato-splenomegaly, or palpable masses. No guarding. MUSCULOSKELETAL: Extremities without clubbing, cyanosis, or edema. No calf tenderness. +tenderness to palpation over left mid thoracic paraspinal muscles. No noticeable rash over the area. NEUROLOGICAL: Awake and alert. Cranial nerves II through XII grossly intact. Motor and sensory grossly within normal limits. No focal neurologic findings appreciated. Normal speech. PSYCHIATRIC: Calm and cooperative. Procedures 03/25/18 lumbar puncture A/P Assessment and Plan 52-year-old female with no significant past medical history presents emergency department for evaluation of fever. Patient reports at home her fever was 103. She endorses nausea and associated vomiting 5 or 6 episodes. MRSA bacteremia Repeat blood cultures positive for GPC 4/4 bottles Hx of MSSA cervical spine infection one yr ago MRI cervical spine with no evidence of infection MRI brain with no acute findings CRP 10.90 CSF studies neg -ID following, appreciate assistance -Continue on IV Vancomycin per ID -Evaluated by NS, no indication for surgical intervention at this time -echocardiogram pending, may need FOREST pending results Left sided thoracic spine pain -Continue Lidoderm patch and K thermia prn -pain management with bowel regimen -obtain MRI thoracic spine for further evaluation -monitor Abdominal pain Vaginal bleeding CT abd/pelvis with 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 No inpatient gynecological workup at this time, follow-up with GENERAL SERVICE TECHNICIAN as outpatient following discharge Hypokalemia, suspect secondary to GI losses Status post p.o. supplementation -resolved Sinus pressure -Continue on Flonase Cannabis use Urine tox screen + for cannabinoids -discussed cessation DVT prophylaxis -SCDs. Avoiding chemical prophylaxis secondary to lumbar puncture. Mary May Mar 27, 2018 11:42
[2018-03-27 11:49] VITALS: BP 126/74; PULSE 84; RESP 20; TEMP 98.4; O2SAT 96
[2018-03-27] MEDS ORDERED: LORazepam 0.5 MG TAB PO ONE (12:30)
[2018-03-27] MEDS ORDERED: GADODIAMIDE PF 287 MG/ML 5 ML VIAL (for RAD MRI) IVCONTRAST ONE (13:46)
--- NOTE | 2018-03-27 14:07 | ECHRPT ---
Indication: VEGETATIONS CONCLUSIONS The left ventricular systolic function is normal with an estimated ejection fraction in the range of 55-60%. There is trace tricuspid valve regurgitation. BP: / HR: Rhythm: Technical Quality: FINDINGS LEFT VENTRICLE Normal left ventricular size. Wall thickness is normal. The left ventricular systolic function is normal with an estimated ejection fraction in the range of 55-60%. No regional wall motion abnormalities are present. RIGHT VENTRICLE Grossly normal LEFT ATRIUM The left atrial size is normal. RIGHT ATRIUM The right atrial size is normal. ATRIAL SEPTUM Normal atrial septal thickness. AORTA The aortic root and proximal ascending aorta are normal in size on limited imaging. MITRAL VALVE Structurally normal mitral valve. No mitral valve regurgitation. No mitral valve stenosis. AORTIC VALVE Probably trileaflet aortic valve. No aortic valve stenosis or regurgitation. TRICUSPID VALVE Structurally normal tricuspid valve. There is trace tricuspid valve regurgitation. No tricuspid valve stenosis. PULMONARY VALVE The pulmonary valve is not well visualized. PERICARDIUM There is no pericardial effusion. David Da Silva DO (Electronically Signed) Final Date:27 March 2018 14:06
[2018-03-27] MEDS: DIAZEPAM 5 MG TAB PO PRN (14:34)
--- NOTE | 2018-03-27 14:39 | RADRPT ---
EXAM DATE: 03/27/2018 1:54 PM EDT AGE/SEX: 52 years / Female INDICATIONS: Pain. CLINICAL DATA: This is the patient's initial encounter. Patient reports that signs and symptoms have been present for 1 day and indicates a pain score of 5/10. MEDICAL/SURGICAL HISTORY: None. Fusion, cervical. Breast implants. COMPARISON: No prior exams available for comparison. TECHNIQUE: Multiplanar, multisequence MRI of the thoracic spine was performed without and with 12 ml Omniscan (gadodiamide) contrast as a single exam dose. FINDINGS: Vertebrae: Bone marrow signal is within normal limits and vertebral body height is maintained. Alignment: No anterolisthesis or retrolisthesis. Cord: Normal signal. T1-T2: No disc herniation, canal stenosis, or neural foraminal stenosis. T2-T3: No disc herniation, canal stenosis, or neural foraminal stenosis. T3-T4: No disc herniation, canal stenosis, or neural foraminal stenosis. T4-T5: No disc herniation, canal stenosis, or neural foraminal stenosis. T5-T6: No disc herniation, canal stenosis, or neural foraminal stenosis. T6-T7: No disc herniation, canal stenosis, or neural foraminal stenosis. T7-T8: No disc herniation, canal stenosis, or neural foraminal stenosis. T8-T9: No disc herniation, canal stenosis, or neural foraminal stenosis. T9-T10: No disc herniation, canal stenosis, or neural foraminal stenosis. T10-T11: No disc herniation, canal stenosis, or neural foraminal stenosis. T11-T12: No disc herniation, canal stenosis, or neural foraminal stenosis. T12-L1: No disc herniation, canal stenosis, or neural foraminal stenosis. Other: There is trace pleural fluid bilaterally, not appreciated on the prior CT. A partially visuali zed 11 mm nodule is likely present in the right lung. CONCLUSION: 1. No thoracic spine abnormality is identified. 2. There is a partially visualized 11 mm nodule suspected in the right lower lobe. Given the prior c oncern for an abscess, this could represent a source for infection. Consider chest CT for further remedios luation. Electronically signed by: Isidro Livingston MD 03/27/2018 2:01 PM EDT
[2018-03-27 15:50] VITALS: BP 138/86; PULSE 68; RESP 20; TEMP 97.9; O2SAT 100
--- NOTE | 2018-03-27 15:50 | HHI.NSPN ---
(Nupur Gee) Note Status Status: Progress Note (Nupur Gee) Interval History Interval History This is a 52-year-old female who presents to [place] emergency department for evaluation of fever. Patient reports at home her fever was 103. She endorses nausea and associated vomiting 5 or 6 episodes. She denies any chest pain or shortness of breath. She has a history of an anterior cervical fusion as well as a posterior cervical fusion in the past with good results. Apparently she had severe stenosis with compression of the spinal cord and I suspect a chronic area of myelomalacia. Denies cough or rhinorrhea. No abdominal pain. In the ED the patient was noted to have multiple small wounds in the bilateral upper extremities that were suspicious for track aguilar. She denies any IV drug abuse. Vital signs: She denies any neck pain. She denies any low back pain or thoracic pain. She denies any weakness on her R Lower extremities. She denies any sensory loss. She denies any incontinence or stool or urinary retention. Her Temperature was 102.9. MRI of the cervical spine did not show any evidence of spinal infection, however she has a small area of myelomalacia. Neurosurgical consultation was requested, 03/27: c/o of facial sinus pain, MRI Brain shows sinusitis. CSF cultures so far negative for infection. (Nupur Gee) Labs, Micro, & Vital Signs Results Date Time Temp Pulse Resp B/P (MAP) Pulse Ox O2 Delivery O2 Flow Rate FiO2 03/27/18 11:49 98.4 84 20 126/74 (91) 96 03/27/18 08:08 98.6 54 18 140/63 (88) 96 03/27/18 05:22 72 16 03/27/18 05:19 16 03/27/18 00:42 16 03/26/18 23:25 97.6 69 16 122/75 (91) 98 03/26/18 21:46 18 03/26/18 19:32 99.5 63 16 135/68 (90) 95 Constitutional Vital Signs Date Time Temp Pulse Resp B/P (MAP) Pulse Ox O2 Delivery O2 Flow Rate FiO2 03/27/18 11:49 98.4 84 20 126/74 (91) 96 03/27/18 08:08 98.6 54 18 140/63 (88) 96 03/27/18 05:22 72 16 03/27/18 05:19 16 03/27/18 00:42 16 03/26/18 23:25 97.6 69 16 122/75 (91) 98 03/26/18 21:46 18 03/26/18 19:32 99.5 63 16 135/68 (90) 95 (Nupur Gee) Review of Systems Constitutional: COMPLAINS OF: Fever, Chills Ears, nose, mouth, throat: COMPLAINS OF: Sinus Pain Respiratory: DENIES: Hemoptysis Cardiovascular: DENIES: Chest pain Musculoskeletal: COMPLAINS OF: Neck pain Neurologic: COMPLAINS OF: Headache, DENIES: Seizures (Nupur Gee) Physical Exam General: resting in bed, dark room, appearing comfortable in no acute distress HEENT: Normocephalic, Atraumatic. Pupils equal. Nonicteric sclera. No nasal drainage. Neck: decreased range of motion, no meningismus or nuchal rigidity Neuro: Alert. Speech is fluent. Mentation intact. Facial motor symmetric. Gross EOMs intact. Respiratory: no accessory muscle use, clear, no wheezes Skin: no cyanosis or erythema (Nupur Gee) General: resting in bed, dark room, appearing comfortable in no acute distress HEENT: Normocephalic, Atraumatic. Pupils equal. Nonicteric sclera. No nasal drainage. Neck: decreased range of motion, no meningismus or nuchal rigidity Neuro: Alert. Speech is fluent. Mentation intact. Facial motor symmetric. Gross EOMs intact. Respiratory: no accessory muscle use, clear, no wheezes Skin: no cyanosis or erythema (Elías Crooks MD) Medications Current Medications Current Medications Medications (Trade) Dose Ordered Sig/Corinne Route PRN Reason Start Time Stop Time Status Last Admin Dose Admin Sodium Chloride 1,000 ml @ 100 mls/hr Q10H IV 03/25/18 01:19 03/27/18 03:19 Sodium Chloride (NS Flush) 2 ml UNSCH PRN IV FLUSH FLUSH AFTER USING IV ACCESS 03/25/18 01:30 Sodium Chloride (NS Flush) 2 ml BID IV FLUSH 03/25/18 09:00 03/27/18 09:02 Acetaminophen (Tylenol) 650 mg Q4H PRN PO TEMP > 100.4 03/25/18 01:30 03/25/18 21:03 Naloxone HCl (Narcan Inj) 0.4 mg UNSCH PRN IV PUSH SEE LABEL COMMENTS 03/25/18 01:30 Lidocaine HCl (Lidoderm 5% Patch.12 Hr) 1 patch DAILY T-DERMAL 03/25/18 09:15 03/27/18 09:03 Miscellaneous Information 1 Q24H T-DERMAL 03/25/18 21:00 03/26/18 20:53 Ondansetron HCl (Zofran Odt) 4 mg Q8HR PRN PO N/V 03/25/18 09:30 03/26/18 18:24 Pharmacy Profile Note 0 ml @ 0 mls/hr UNSCH OTHER 03/25/18 11:30 Vancomycin HCl 1250 mg/Sodium Chloride 262.5 ml @ 250 mls/hr Q12H IV 03/26/18 01:00 03/27/18 12:29 Tramadol HCl (Ultram) 50 mg Q8H PRN PO PAIN 3-5 03/25/18 15:30 03/27/18 09:02 Nicotine (Habitrol 14 Mg Patch.24 Hr) 1 patch DAILY T-DERMAL 03/25/18 16:45 03/27/18 09:00 Miscellaneous Information 1 HS T-DERMAL 03/26/18 21:00 03/27/18 09:03 Fluticasone Propionate (Flonase Shawn Spr) 2 spray DAILY NASAL 03/26/18 13:15 03/27/18 09:02 Acetaminophen/ Butalbital/ Caffeine (Fioricet 325-50-40) 1 tab Q6H PRN PO headache 03/27/18 04:15 03/27/18 14:34 Miscellaneous Information ([facility] [place] [facility] Ordered Lab Info) SPECIFIC LAB TO BE JENNYFER... ONCE ONCE .XX 03/28/18 12:45 03/28/18 12:46 Oxycodone HCl (Roxicodone) 10 mg Q6H PRN PO PAIN 6-10 03/27/18 11:30 03/27/18 11:47 Diazepam (Valium) 5 mg Q12H PRN PO ANZIETY 03/27/18 11:30 03/27/18 14:34 (Nupur Gee) Current Medications Current Medications Sodium Chloride 1,000 ml @ 999 mls/hr BOLUS ONCE IV Last administered on 21:36; Start 03/24/18 at 21:30; Stop 03/24/18 at 22:30; Status DC Acetaminophen (Tylenol) 650 mg ONCE ONCE PO Last administered on 03/24/18at 21: 37; Start 03/24/18 at 21:30; Stop 03/24/18 at 21:31; Status DC Ondansetron HCl (Zofran Odt) 4 mg ONCE ONCE PO Last administered on 03/24/18 21:37; Start 03/24/18 at 21:30; Stop 03/24/18 at 21:31; Status DC Sodium Chloride 1,000 ml @ 999 mls/hr BOLUS ONCE IV Last administered on at 21:37; Start 03/24/18 at 21:30; Stop 03/24/18 at 22:30; Status DC Sodium Chloride 1,000 ml @ 100 mls/hr Q10H IV Last administered on 03/30/18at 13:50; Start 03/25/18 at 01:19; Stop 03/30/18 at 14:03; Status DC Sodium Chloride (NS Flush) 2 ml UNSCH PRN IV FLUSH FLUSH AFTER USING IV ACCESS ; Start 03/25/18 at 01:30 Sodium Chloride (NS Flush) 2 ml BID IV FLUSH Last administered on 03/31/18at 21: 13; Start 03/25/18 at 09:00 Acetaminophen (Tylenol) 650 mg Q4H PRN PO TEMP > 100.4 Last administered on 03/25at 21:03; Start 03/25/18 at 01:30 Naloxone HCl (Narcan Inj) 0.4 mg UNSCH PRN IV PUSH SEE LABEL COMMENTS; Start at 01:30 Potassium Chloride (KCl) 30 meq ONCE ONCE PO Last administered on 03/25/18at 02: 00; Start 03/25/18 at 01:30; Stop 03/25/18 at 01:31; Status DC Lidocaine HCl (Lidoderm 5% Patch.12 Hr) 1 patch DAILY T-DERMAL Last administered on 03/31/18at 08:12; Start 03/25/18 at 09:15 Miscellaneous Information 1 Q24H T-DERMAL Last administered on 03/26/18at 20:53; Start 03/25/18 at 21:00 Ondansetron HCl (Zofran Odt) 4 mg Q8HR PRN PO N/V Last administered on at 13:08; Start 03/25/18 at 09:30 Diatrizoate Meglum/ Diatrizoate Sod ( Gastroview Liq) 18 ml ONCE ONCE PO Last administered on 03/25/18at 12:36; Start 03/25/18 at 11:00; Stop 03/25/18 at 11: 01; Status DC Pharmacy Profile Note 0 ml @ 0 mls/hr UNSCH OTHER ; Start 03/25/18 at 11:30 Vancomycin HCl 1000 mg/Sodium Chloride 250 ml @ 250 mls/hr ONCE ONCE IV Last administered on 03/25/18at 15:15; Start 03/25/18 at 12:30; Stop 03/25/18 at 13:50; Status DC Lorazepam (Ativan) 1 mg ONCE ONCE PO Last administered on 03/25/18at 14:01; Start 03/25/18 at 13:30; Stop 03/25/18 at 13:50; Status DC Vancomycin HCl 1250 mg/Sodium Chloride 262.5 ml @ 250 mls/hr Q12H IV Last administered on 03/28/18at 01:18; Start 03/26/18 at 01:00; Stop 03/28/18 at 14:10; Status DC Miscellaneous Information ([facility] Ordered Lab Info) SPECIFIC LAB TO BE DRAWN:VANCO TROUGH DATE TO BE DR... ONCE ONCE .XX Last administered on at 00:32; Start 03/27/18 at 00:45; Stop 03/27/18 at 00:46; Status DC Rifampin (Rifampin) 300 mg Q12HR PO Last administered on 03/26/18at 10:32; Start 03/26/18 at 09:00; Stop 03/26/18 at 13:12; Status DC Gadodiamide (Omniscan Pf Inj) 12 ml STK-MED ONCE IVCONTRAST Last administered on 03/25/18 14:50; Start 03/25/18 at 14:50; Stop 03/25/18 at 14:51; Status DC Tramadol HCl (Ultram) 50 mg Q8H PRN PO PAIN 3-5 Last administered on 03/29/18 15:09; Start 03/25/18 at 15:30 Nicotine (Habitrol 14 Mg Patch.24 Hr) 1 patch DAILY T-DERMAL Last administered on 03/27/18 09:00; Start 03/25/18 at 16:45 Miscellaneous Information 1 DAILY T-DERMAL ; Start 03/26/18 at 09:00; Status Cancel Iohexol (Omnipaque 350 Inj) 75 ml STK-MED ONCE IVCONTRAST Last administered on 03/25/18 18:42; Start 03/25/18 at 18:42; Stop 03/25/18 at 18:43; Status DC Miscellaneous Information 1 HS T-DERMAL Last administered on 03/27/18 09:03; Start 03/26/18 at 21:00 Fluticasone Propionate (Flonase Shawn Spr) 2 spray DAILY NASAL Last administered on 03/31/18 08:12; Start 03/26/18 at 13:15 Lorazepam (Ativan) 1 mg ONCE ONCE PO Last administered on 03/26/18 15:25; Start 03/26/18 at 13:40; Stop 03/26/18 at 13:41; Status DC Gadodiamide (Omniscan Pf Inj) 12 ml STK-MED ONCE IVCONTRAST Last administered on 03/26/18at 16:03; Start 03/26/18 at 16:03; Stop 03/26/18 at 16:04; Status DC Acetaminophen/ Butalbital/ Caffeine (Fioricet 325-50-40) 1 tab ONCE ONCE PO Last administered on 03/26/18at 20:46; Start 03/26/18 at 20:45; Stop 03/26/18 at 20: 46; Status DC Acetaminophen/ Butalbital/ Caffeine (Fioricet 325-50-40) 1 tab Q6H PRN PO headache Last administered on 03/27/18at 14:34; Start 03/27/18 at 04:15; Stop at 11:38; Status DC Lidocaine HCl (Lidoderm 5% Patch.12 Hr) 1 patch ONCE ONCE T-DERMAL Last administered on 03/27/18at 04:19; Start 03/27/18 at 04:15; Stop 03/27/18 at 04:16; Status DC Miscellaneous Information ([facility] Ordered Lab Info) SPECIFIC LAB TO BE JENNYFER... ONCE ONCE .XX Last administered on 03/28/18at 12:40; Start 03/28/18 at 12: 45; Stop 03/28/18 at 12:46; Status DC Oxycodone HCl (Roxicodone) 10 mg Q6H PRN PO PAIN 6-10 Last administered on 03/29at 04:43; Start 03/27/18 at 11:30; Stop 03/29/18 at 08:46; Status DC Diazepam (Valium) 5 mg Q12H PRN PO ANZIETY Last administered on 03/30/18at 04:50 ; Start 03/27/18 at 11:30; Stop 03/30/18 at 14:04; Status DC Lorazepam (Ativan) 0.5 mg ONCE ONCE PO Last administered on 03/27/18at 12:29; Start 03/27/18 at 12:30; Stop 03/27/18 at 12:31; Status DC Gadodiamide (Omniscan Pf Inj) 12 ml STK-MED ONCE IVCONTRAST Last administered on 03/27/18at 13:46; Start 03/27/18 at 13:46; Stop 03/27/18 at 13:47; Status DC Morphine Sulfate (Morphine Inj) 2 mg ONCE ONCE IV PUSH Last administered on 03/27/18at 16:07; Start 03/27/18 at 16:00; Stop 03/27/18 at 16:04; Status DC Sumatriptan Succinate (Imitrex) 50 mg ONCE ONCE PO Last administered on at 18:38; Start 03/27/18 at 18:30; Stop 03/27/18 at 18:31; Status DC Hydromorphone HCl (Dilaudid Pf Inj) 0.5 mg ONCE ONCE IV PUSH Last administered on 03/27/18at 21:11; Start 03/27/18 at 21:00; Stop 03/27/18 at 21:01; Status DC Hydromorphone HCl (Dilaudid Pf Inj) 0.5 mg ONCE ONCE IV PUSH Last administered on 03/28/18at 12:18; Start 03/28/18 at 11:45; Stop 03/28/18 at 11:46; Status DC Gabapentin (Neurontin) 300 mg ONCE ONCE PO Last administered on 03/28/18at 12:19 ; Start 03/28/18 at 11:45; Stop 03/28/18 at 11:46; Status DC Vancomycin HCl 1500 mg/Sodium Chloride 515 ml @ 250 mls/hr Q12H IV Last administered on 04/01/18at 01:15; Start 03/28/18 at 15:00 Miscellaneous Information ([facility] Ordered Lab Info) SPECIFIC LAB TO BE DRAWN:VANCOMYCIN TROUGH DATE TO... ONCE ONCE .XX Last administered on at 02:55; Start 03/30/18 at 02:45; Stop 03/30/18 at 02:46; Status DC Miscellaneous Information ([facility] Nursing Information) ALL NURSING DEPARTME... UNSCH PRN .XX SEE LABEL COMMENTS; Start 03/28/18 at 15:00; Stop 03/29/18 at 14: 59; Status DC Gabapentin (Neurontin) 300 mg ONCE ONCE PO Last administered on 03/28/18at 16:46 ; Start 03/28/18 at 16:45; Stop 03/28/18 at 16:46; Status DC Sumatriptan Succinate (Imitrex) 50 mg ONCE ONCE PO Last administered on at 20:36; Start 03/28/18 at 18:45; Stop 03/28/18 at 18:46; Status DC Oxycodone HCl (Roxicodone) 15 mg Q6H PRN PO PAIN 6-10 Last administered on 03/30at 10:54; Start 03/29/18 at 11:30; Stop 03/30/18 at 14:04; Status DC Sumatriptan Succinate (Imitrex) 50 mg ONCE ONCE PO Last administered on at 15:58; Start 03/29/18 at 15:00; Stop 03/29/18 at 15:01; Status DC Sumatriptan Succinate (Imitrex) 50 mg ONCE ONCE PO Last administered on at 22:51; Start 03/29/18 at 17:00; Stop 03/29/18 at 17:01; Status DC Miscellaneous Information ([facility] Ordered Lab Info) SPECIFIC LAB TO BE JENNYFER... ONCE ONCE .XX Last administered on 04/01/18at 02:45; Start 04/01/18 at 02:45; Stop 04/01/18 at 02:46; Status DC Diazepam (Valium) 5 mg Q8HR PRN PO ANZIETY Last administered on 04/01/18at 04:58 ; Start 03/30/18 at 14:15 Oxycodone HCl (Roxicodone) 15 mg Q4H PRN PO PAIN 6-10 Last administered on 04/01at 04:58; Start 03/30/18 at 14:15 Rifampin (Rifampin) 300 mg Q12HR PO Last administered on 03/31/18at 21:13; Start 03/31/18 at 21:00 Sumatriptan Succinate (Imitrex) 50 mg ONCE ONCE PO Last administered on at 15:01; Start 03/31/18 at 15:00; Stop 03/31/18 at 15:01; Status DC Heparin Sodium (Porcine) (Heparin Inj) 5,000 units Q12H SQ Last administered on 04/01/18at 01:14; Start 03/31/18 at 14:00 (Elías Crooks MD) Medical Decision Making MDM Remarks 52 year old female with history of cervical spinal infection s/p surgical fixation a year ago, returned for high fevers MRI Cervical spine without recurrent evidence of infection or epidural abscess Sepsis with positive blood cultures (Nupur Gee) Plan Plan Remarks nonsurgical management Infectious Disease following, cont antibiotic treatment of sepsis no further NRS interventions planned will sign off, call prn (Nupur Gee) Attending Statement I do not see any evidence of infection to her spine. I do not see any indication for a surgical procedure There is evidence of sepsis. She has positive blood cultures. I do not see any clinical evidence of meningitis. Recommend follow-up blood cultures and aggressive intravenous antibiotic treatment Pulmonary..aggressive pulmonary toilette, nasotracheal suction, and breathing treatments with nebulizers. Nutrition. Oral diet Renal. monitor closely urine output, BUN and creatinine Endocrine. Monitor serial Acu checks and SSI as needed in detail ID monitor for signs of infection Protonix for stress ulcer prophylaxis Ad hose and SCD's for DVT prophylaxis. The exam, history, and the medical decision-making described in the above note were completed with the assistance of the mid-level provider. I reviewed and agree with the findings presented. I attest that I had a [id number] encounter with the patient on the same day, and personally performed and documented my assessment and findings in the medical record. (Elías Crooks MD) Nupur Gee Mar 27, 2018 15:50 Elías Crooks MD Apr 01, 2018 08:52
[2018-03-27] MEDS ORDERED: MORPHINE SULFATE 4 MG/ML INJ IV PUSH ONE (16:00)
--- NOTE | 2018-03-27 17:45 | MB ---
cc: David Da Silva Vincent G DO DATE: 03/27/2018 REASON FOR CONSULTATION: Bacteremia consideration of FOREST. HISTORY OF PRESENT ILLNESS: Daksha Castro is a pleasant 52-year-old female who presented to [facility] Emergency Room on 03/25/2018 due to a fever. She states that at home she had a fever of 103 and nausea and vomiting around, 5 to 6 episodes. She denies chest pain or shortness of breath during the episodes. During her workup, she was found to have multiple blood cultures positive for MRSA and was seen by infectious disease. She underwent imaging workup which showed no abscesses or causes or potential causes of her bacteremia. Because of the persistent bacteremia, I was asked to see her for further considerations of a transesophageal echocardiogram. In seeing her, she states that she is no longer having fevers, but occasionally has chills. She denies chest pain or shortness of breath. PAST MEDICAL HISTORY: Denies. PAST SURGICAL HISTORY: Anterior cervical fusion as well as posterior cervical fusion. ALLERGIES: CODEINE. MEDICATIONS: 1. Oxycodone 10 mg every 4 hours as needed for pain. 2. Valium 5 mg t.i.d. FAMILY HISTORY: Denies premature coronary artery disease or sudden cardiac within the family. SOCIAL HISTORY: The patient admits to smoking. Denies alcohol or drug abuse. REVIEW OF SYSTEMS: Fourteen systems were reviewed including osteopathic. Pertinent positives and negatives as above, otherwise negative. PHYSICAL EXAMINATION: VITAL SIGNS: Temperature 97.9, heart rate 68, blood pressure 138/86, respirations 20, pulse oximetry 100% on room air. GENERAL: The patient appears well in no acute distress, alert, awake and oriented x3. HEENT: Extraocular muscles intact. Mucous membranes moist. NECK: Supple. No JVD at 45 degrees. No carotid bruits heard bilaterally. Carotid upstroke is brisk in nature. HEART: Regular rate and rhythm. Positive first and second heart sounds with no noted murmurs, gallops or rubs. LUNGS: Clear to auscultation bilaterally. No wheezes, rales or rhonchi. ABDOMEN: Soft, nontender, nondistended. No organomegaly noted. EXTREMITIES: Show no clubbing, cyanosis or edema. Femoral and distal pulses intact bilaterally. NEUROLOGIC: No focal deficits. SKIN: Warm, dry and intact. OSTEOPATHIC: No kyphoscoliosis or lordosis. LABORATORY DATA: Hemoglobin 13.2, hematocrit 38.5, platelets 241. Potassium 3.5, BUN 5, creatinine 0.47. C-reactive protein 10.9. CARDIOLOGY STUDIES: Electrocardiogram (03/24/2018 at 2016): Sinus rhythm, nonspecific ST-T wave changes. IMPRESSION: 1. Fever/chills of unknown source. 2. Bacteremia with methicillin resistant Staph aureus. 3. Previous neck surgery. 4. Tobacco abuse. RECOMMENDATIONS: 1. Ms. Castro presented with fever and was found to have bacteremia with Methicillin resistant Staph aureus in 4/4 bottles. 2. Due to this, she will be recommended transesophageal echocardiogram to rule out endocarditis. Risks, benefits and alternatives have been explained to her and she consented as such. 3. As she has eaten today, we will plan on making her n.p.o. after midnight and plan on doing the procedure tomorrow morning. 4. Further recommendations will be made after transesophageal echocardiogram. 5. I spoke to her for greater than 3 minutes about tobacco cessation. Thank you for allowing me to see Daksha Castro. If there are any questions, please do not hesitate to call. David Da Silva, VGP/SA , 05:19 PM , 05:44 PM
[2018-03-27] MEDS ORDERED: SUMAtriptan SUCCINATE 50 MG TAB PO ONE (18:30)
[2018-03-27 19:53] VITALS: BP 111/63; PULSE 59; RESP 16; TEMP 97.8; O2SAT 98
[2018-03-27] MEDS: REMOVE OLD LIDOCAINE PATCH T-DERMAL SCH (20:13)
--- NOTE | 2018-03-27 20:32 | HHI.IDPN ---
Subjective Subjective Remarks MRI showed myelomalacia. Seen by Dr Crooks: cw old changes no active infection cont c/o excruciating sinus pain and headache Co R hip pain More + blood clx with GPC 4/4 bottles Antibiotics vancomycin Allergies: Coded Allergies: codeine (Unverified Allergy, Intermediate, EDEMA AND VOMITING, 03/24/18) Objective . Vital Signs Date Time Temp Pulse Resp B/P (MAP) Pulse Ox O2 Delivery O2 Flow Rate FiO2 03/27/18 19:53 97.8 59 16 111/63 (79) 98 03/27/18 15:50 97.9 68 20 138/86 (103) 100 03/27/18 11:49 98.4 84 20 126/74 (91) 96 03/27/18 08:08 98.6 54 18 140/63 (88) 96 03/27/18 05:22 72 16 03/27/18 05:19 16 03/27/18 00:42 16 03/26/18 23:25 97.6 69 16 122/75 (91) 98 03/26/18 21:46 18 03/27/18 03/27/18 03/28/18 15:00 23:00 07:00 Intake Total 1000 ml 250 ml Balance 1000 ml 250 ml IV Total 1000 ml 250 ml . Laboratory Tests Test 03/26/18 05:02 White Blood Count 7.6 TH/MM3 Red Blood Count 4.45 MIL/MM3 Hemoglobin 13.2 GM/DL Hematocrit 38.5 % Mean Corpuscular Volume 86.6 FL Mean Corpuscular Hemoglobin 29.6 PG Mean Corpuscular Hemoglobin Concent 34.2 % Red Cell Distribution Width 13.8 % Platelet Count 241 TH/MM3 Mean Platelet Volume 7.5 FL Neutrophils (%) (Auto) 68.1 % Lymphocytes (%) (Auto) 23.9 % Monocytes (%) (Auto) 4.5 % Eosinophils (%) (Auto) 2.8 % Basophils (%) (Auto) 0.7 % Neutrophils # (Auto) 5.2 TH/MM3 Lymphocytes # (Auto) 1.8 TH/MM3 Monocytes # (Auto) 0.3 TH/MM3 Eosinophils # (Auto) 0.2 TH/MM3 Basophils # (Auto) 0.1 TH/MM3 CBC Comment DIFF FINAL Differential Comment Hematology Comments Laboratory Tests Test 03/26/18 05:02 Blood Urea Nitrogen 5 MG/DL Creatinine 0.47 MG/DL Random Glucose 120 MG/DL Calcium Level 8.5 MG/DL Sodium Level 141 MEQ/L Potassium Level 3.5 MEQ/L Chloride Level 108 MEQ/L Carbon Dioxide Level 24.1 MEQ/L Anion Gap 9 MEQ/L Estimat Glomerular Filtration Rate 139 ML/MIN Microbiology Date/Time Source Procedure Growth Status 03/26/18 05:06 Blood Peripheral Aerobic Blood Culture - Preliminary Gram Positive Cocci Resulted 03/26/18 05:06 Anaerobic Blood Culture - Preliminary Gram Positive Cocci Resulted 03/26/18 05:02 Blood Peripheral Aerobic Blood Culture - Preliminary Gram Positive Cocci Resulted 03/26/18 05:02 Anaerobic Blood Culture - Preliminary Gram Positive Cocci Resulted 03/24/18 20:29 Blood Peripheral Aerobic Blood Culture - Final S. Aureus Mrsa Complete 03/24/18 20:29 Anaerobic Blood Culture - Final S. Aureus Mrsa Complete 03/24/18 20:29 Blood Peripheral Aerobic Blood Culture - Final S. Aureus Mrsa Complete 03/24/18 20:29 Anaerobic Blood Culture - Final S. Aureus Mrsa Complete 03/25/18 11:32 Cerebral Spinal Fluid Lumbar Puncture Gram Stain - Final Resulted 03/25/18 11:32 Cerebral Spinal Fluid Lumbar Puncture CSF Culture - Preliminary NO GROWTH IN 48 HOURS. Resulted 03/24/18 21:25 Nasal Washing Influenza Types A,B Antigen (TRINI) - Final NEGATIVE FOR FLU A AND B ANTIGEN.... Complete Imaging L Last Impressions Thoracic Spine MRI 03/27/18 0000 Signed Impressions: CONCLUSION: 1. No thoracic spine abnormality is identified. 2. There is a partially visualized 11 mm nodule suspected in the right lower l obe. Given the prior concern for an abscess, this could represent a source for infection. Consider chest CT for further evaluation. Brain MRI 03/26/18 0000 Signed Impressions: CONCLUSION: 1. Chronic small vessel ischemic and atrophic changes. 2. Small venous angioma on the left and chronic sinusitis as above. Lumbar Puncture Fluoroscopy 03/25/18 Signed Impressions: CONCLUSION: 1. Uncomplicated fluoroscopically guided lumbar puncture with pressures as abo ve. Cervical Spine MRI 03/25/18 Signed Impressions: CONCLUSION: 1. No epidural abscess is identified and there are no findings to suggest infe ction. Patient is post C5 and C6 corpectomy with bone graft placement and anter ior and posterior hardware placement. Hardware demonstrates no acute finding. 2. Abnormal signal within the spinal cord adjacent to the surgery. This most l ikely represents myelomalacia. 3. No significant spinal canal stenosis or neural foraminal stenosis is identi fied. Abdomen/Pelvis CT 03/25/18 Signed Impressions: CONCLUSION: 1. Trace amount of free fluid within the cul-de-sac. 2. No acute abnormality . 3. Dilated gonadal vein with pelvic varicosities. 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 4. Pectus excavatum. Chest X-Ray 03/24/18 Signed Impressions: CONCLUSION: Negative examination. Physical Exam CONSTITUTIONAL/GENERAL: This is an adequately nourished patient, in some apparent distress 2/2 headache TUBES/LINES/DRAINS: SKIN: No jaundice, rashes, or lesions. Skin temperature appropriate. Not diaphoretic. HEAD: Atraumatic. Normocephalic. EYES: Pupils equal and round and reactive. Extraocular motions intact. No scleral icterus. No injection or drainage. Fundi not examined. ENT: Hearing grossly normal. Nose without bleeding or purulent drainage. Throat without visible erythema, exudates, masses, or lesions. NECK: Trachea midline. Supple, tender to palpation. Well healed scar posterior neck. No edema, erythema, drainage CARDIOVASCULAR: Regular rate and rhythm without murmurs, gallops, or rubs. No JVD. Peripheral pulses symmetric. RESPIRATORY/CHEST: Symmetric, unlabored respirations. Clear to auscultation. Breath sounds equal bilaterally. No wheezes, rales, or rhonchi. GASTROINTESTINAL: Abdomen soft, non-tender, nondistended. No hepato-splenomegaly , or palpable masses. No guarding. Bowel sounds present. MUSCULOSKELETAL: Extremities without clubbing, cyanosis, or edema. No joint tenderness or effusion noted. No calf tenderness. No mottling or clubbing. NEUROLOGICAL: Awake and alert. Motor and sensory grossly within normal limits. Follows commands. Cognitively sharp. Moves all extremities. PSYCHIATRIC: No obvious anxiety/depression. no apparent hallucinations or other psychotic thought process. Assessment & Plan Remarks MRSA sepsis Neck pain, h/o C spine instrumentation and infection no e/o abscess on MRI - CSF neg Headache: no brain abscess - no e/o endocarditis on periferal exam MRI of T spine sugg of pulmonary abscess Cont vancomycin consult cardilogist for FOREST CT chest dw radiologist Gin Dimas MD Mar 27, 2018 20:32
[2018-03-27] MEDS ORDERED: HYDROmorphone HCL PF 2 MG/ML VIAL IV PUSH ONE (21:00)
--- NOTE | 2018-03-27 21:41 | RADRPT ---
EXAM DATE: 03/27/2018 9:31 PM EDT AGE/SEX: 52 years / Female INDICATIONS: Lung nodule seen on T-Spine MRI. CLINICAL DATA: This is the patient's initial encounter. Patient reports that signs and symptoms have been present for 1 day and indicates a pain score of 0/10. MEDICAL/SURGICAL HISTORY: Cerebrovascular disease. None. RADIATION DOSE: 6.66 CTDI (mGy) COMPARISON: [facility] [place], MRI THORACIC SPINE W & W/O CONTRAST, 03/27/2018. . TECHNIQUE: Multiple contiguous axial images were obtained through the chest without contrast. Image s were obtained in suspended respiration using multiple row detector helical technique. Using automa zehra exposure control and adjustment of the mA and/or kV according to patient size, radiation dose was kept as low as reasonably achievable to obtain optimal diagnostic quality images. FINDINGS: Lungs: There is a focal density measuring 1.2 cm at the posterior lateral right lower lobe. This cor responds to the areas seen on the recent MRI of thoracic spine. There is some minimal linear densitie s seen at the medial inferior right upper lobe. This likely is related to atelectasis or scarring. Th ere is also some minimal linear densities seen at the bases likely related to scarring or atelectasis . Mediastinum: There is good visualization of the great vessels of the middle mediastinum. No evidenc e of mediastinal or hilar adenopathy/mass. Pleurae: No evidence of focal thickening or pleural effusion. Axillae: Unremarkable. Bony Structures: There is postsurgical change seen in the lower cervical spine. Hardware is present. Miscellaneous: The examination was extended to include the upper abdomen, and both adrenal glands ar e normal in size and configuration. Bilateral breast implants are present. CONCLUSION: 1. Confirmation of a 1.2 cm subpleural mass at the posterior lateral right lower lobe. This area cou ld be further evaluated with a PET FDG study to determine if it is metabolically active or not. It is amenable to biopsy if needed. 2. Linear suspected suspected scarring or atelectasis at the inferior medial right upper lobe and at the posterior lung bases bilaterally. Electronically signed by: Isidro Chen MD 03/27/2018 9:40 PM EDT
[2018-03-27 23:26] VITALS: BP 107/63; PULSE 73; RESP 16; TEMP 98.1; O2SAT 95
[2018-03-28] VITALS: BP 121/75; PULSE 68; RESP 18; TEMP 98; O2SAT 97
[2018-03-28] MEDS: VANCOMYCIN INJ 1,250 MG in SODIUM CHLOR 0.9% 250 ML INJ 250 ML IV SCH ×2 (01:18→12:40)
[2018-03-28] MEDS: DIAZEPAM 5 MG TAB PO PRN ×2 (02:20→16:31)
[2018-03-28 05:53] LABS: CREATININE 0.53 MG/DL (0.50-1.00)
[2018-03-28 08:00] VITALS: BP 144/77; PULSE 59; RESP 17; TEMP 98.2; O2SAT 98
[2018-03-28] MEDS: SODIUM CHLORIDE 0.9% FLUSH 10 ML FLUSH IV FLUSH SCH ×2 (08:04→20:38)
[2018-03-28] MEDS: LIDOCAINE HCL 5% PATCH T-DERMAL SCH (08:48)
[2018-03-28] MEDS: NICOTINE 14 MG/24 HR PATCH T-DERMAL SCH (08:58)
[2018-03-28] MEDS: FLUTICASONE PROPIONATE 50 MCG/ACT 16 GM NASAL SPRAY NASAL SCH (08:59)
[2018-03-28] MEDS: SODIUM CHLOR 0.9% 1000 ML INJ 1,000 ML IV SCH ×2 (09:04→23:14)
--- NOTE | 2018-03-28 10:45 | HHI.PR ---
Subjective Remarks Patient seen and examined this morning, their vitals are stable and the patient is afebrile. She reports a significant KOCH. Reports it feels like it is stabbing , behind the eyes and by the neck. She states the fiorcet did not help. States the dilaudid helped for a few hours. Objective Vital Signs Date Time Temp Pulse Resp B/P (MAP) Pulse Ox O2 Delivery O2 Flow Rate FiO2 03/28/18 08:00 98.2 59 17 144/77 (99) 98 03/28/18 03:21 18 03/28/18 00:00 98.0 68 18 121/75 (90) 97 03/27/18 23:26 98.1 73 16 107/63 (78) 95 03/27/18 21:50 16 03/27/18 19:53 97.8 59 16 111/63 (79) 98 03/27/18 15:50 97.9 68 20 138/86 (103) 100 03/27/18 11:49 98.4 84 20 126/74 (91) 96 I/O 03/27/18 03/27/18 03/27/18 03/28/18 03/28/18 03/28/18 07:00 15:00 23:00 07:00 15:00 23:00 Intake Total 1000 ml 250 ml 262.5 ml Balance 1000 ml 250 ml 262.5 ml IV Total 1000 ml 250 ml 262.5 ml # Voids 1 Result Diagram: 03/26/18 0502 03/28/18 0457 Imaging Last Impressions Thoracic Spine MRI 03/27/18 0000 Signed Impressions: CONCLUSION: 1. No thoracic spine abnormality is identified. 2. There is a partially visualized 11 mm nodule suspected in the right lower l obe. Given the prior concern for an abscess, this could represent a source for infection. Consider chest CT for further evaluation. Chest CT 03/27/18 0000 Signed Impressions: CONCLUSION: 1. Confirmation of a 1.2 cm subpleural mass at the posterior lateral right low er lobe. This area could be further evaluated with a PET FDG study to determine if it is metabolically active or not. It is amenable to biopsy if needed. 2. Linear suspected suspected scarring or atelectasis at the inferior medial r ight upper lobe and at the posterior lung bases bilaterally. Brain MRI 6/7/18 0000 Signed Impressions: CONCLUSION: 1. Chronic small vessel ischemic and atrophic changes. 2. Small venous angioma on the left and chronic sinusitis as above. Lumbar Puncture Fluoroscopy 03/25/18 Signed Impressions: CONCLUSION: 1. Uncomplicated fluoroscopically guided lumbar puncture with pressures as abo ve. Cervical Spine MRI 03/25/18 Signed Impressions: CONCLUSION: 1. No epidural abscess is identified and there are no findings to suggest infe ction. Patient is post C5 and C6 corpectomy with bone graft placement and anter ior and posterior hardware placement. Hardware demonstrates no acute finding. 2. Abnormal signal within the spinal cord adjacent to the surgery. This most l ikely represents myelomalacia. 3. No significant spinal canal stenosis or neural foraminal stenosis is identi fied. Abdomen/Pelvis CT 03/25/18 Signed Impressions: CONCLUSION: 1. Trace amount of free fluid within the cul-de-sac. 2. No acute abnormality . 3. Dilated gonadal vein with pelvic varicosities. 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 4. Pectus excavatum. Chest X-Ray 03/24/18 Signed Impressions: CONCLUSION: Negative examination. Objective Remarks GENERAL: Well-appearing, no acute distress SKIN: Warm and dry. HEAD: Normocephalic. EYES: No scleral icterus. No injection or drainage. NECK: Supple, trachea midline. No JVD or lymphadenopathy. CARDIOVASCULAR: Regular rate and rhythm without murmurs, gallops, or rubs. RESPIRATORY: Breath sounds equal bilaterally. No accessory muscle use. GASTROINTESTINAL: Abdomen soft, non-tender, nondistended. MUSCULOSKELETAL: No cyanosis, or edema. A/P Problem List: (1) Bacteremia ICD Code: R78.81 - Bacteremia (2) Headache ICD Code: R51 - Headache Assessment and Plan 52-year-old female with no significant medical history presented to the ER with a chief complaint of fever found to have bacteremia MRSA bacteremia, 442 Patient has a history of MSSA cervical spine infection about 1 year ago MRI cervical spine with no evidence of infection MRI brain negative CRP elevated CSF studies negative, no growth to date Infectious disease following, continue vancomycin Cardiology was consulted for to rule out vegetations with FOREST: 2D echo no mention of vegetation seen on report. 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 If gabapentin does not help the headache will reach out to radiology patient may benefit from having a blood patch. Cannabinoid use Cessation was discussed DVT prophylaxis Bilateral SCDs, avoiding chemical prophylaxis due to lumbar puncture Discharge Planning d/c pending further workup Jo Gonzalez MD Mar 28, 2018 10:45
[2018-03-28] MEDS ORDERED: GABAPENTIN 300 MG CAP PO ONE ×2 (11:45→16:45)
[2018-03-28] MEDS ORDERED: HYDROmorphone HCL PF 2 MG/ML VIAL IV PUSH ONE (11:45)
[2018-03-28 12:00] VITALS: BP 137/80; PULSE 79; RESP 17; TEMP 98.1; O2SAT 97
[2018-03-28] MEDS ORDERED: PHARMACY ORDERED LAB ONE (12:45)
[2018-03-28] MEDS ORDERED: DO NOT ADM ANY ANTICOAGULANT DRUGS PRN (15:00)
[2018-03-28 16:00] VITALS: BP 124/72; PULSE 73; RESP 17; TEMP 97.5; O2SAT 96
[2018-03-28] MEDS: VANCOMYCIN INJ 1,500 MG in SODIUM CHLORID 0.9% 500 ML INJ 500 ML IV SCH (16:31)
--- NOTE | 2018-03-28 17:14 | PD.CARD.PN ---
Subjective Subjective Remarks No complaints FOREST showing small tricuspid mobile density consistent with endocarditis Objective Medications Current Medications Medications (Trade) Dose Ordered Sig/Corinne Route Start Time Stop Time Status Last Admin Sodium Chloride 1,000 ml @ 100 mls/hr Q10H IV 03/25/18 01:19 03/28/18 09:04 (NS Flush) 2 ml UNSCH PRN IV FLUSH 03/25/18 01:30 (NS Flush) 2 ml BID IV FLUSH 03/25/18 09:00 03/27/18 20:13 (Tylenol) 650 mg Q4H PRN PO 03/25/18 01:30 03/25/18 21:03 (Narcan Inj) 0.4 mg UNSCH PRN IV PUSH 03/25/18 01:30 (Lidoderm 5% Patch.12 Hr) 1 patch DAILY T-DERMAL 03/25/18 09:15 03/28/18 08:48 Miscellaneous Information 1 Q24H T-DERMAL 03/25/18 21:00 03/26/18 20:53 (Zofran Odt) 4 mg Q8HR PRN PO 03/25/18 09:30 03/26/18 18:24 Pharmacy Profile Note 0 ml @ 0 mls/hr UNSCH OTHER 03/25/18 11:30 (Ultram) 50 mg Q8H PRN PO 03/25/18 15:30 03/27/18 09:02 (Habitrol 14 Mg Patch.24 Hr) 1 patch DAILY T-DERMAL 03/25/18 16:45 03/27/18 09:00 Miscellaneous Information 1 HS T-DERMAL 03/26/18 21:00 03/27/18 09:03 (Flonase Shawn Spr) 2 spray DAILY NASAL 03/26/18 13:15 03/28/18 08:59 (Roxicodone) 10 mg Q6H PRN PO 03/27/18 11:30 03/28/18 16:31 (Valium) 5 mg Q12H PRN PO 03/27/18 11:30 03/28/18 16:31 Vancomycin HCl 1500 mg/Sodium Chloride 515 ml @ 250 mls/hr Q12H IV 03/28/18 15:00 03/28/18 16:31 ([facility] [place] [facility] Ordered Lab Info) SPECIFIC LAB TO BE DRAWN:VANCOMYCIN TROUGH DATE TO... ONCE ONCE .XX 03/30/18 02:45 03/30/18 02:46 ([facility] [place] Nursing Information) ALL NURSING DEPARTME... UNSCH PRN .XX 03/28/18 15:00 03/29/18 14:59 Vital Signs / I&O Vital Signs Date Time Temp Pulse Resp B/P (MAP) Pulse Ox O2 Delivery O2 Flow Rate FiO2 03/28/18 16:00 97.5 73 17 124/72 (89) 96 03/28/18 14:37 58 16 111/62 (78) 96 Room Air 03/28/18 14:29 63 16 106/64 (78) 95 Room Air 03/28/18 14:15 98.2 64 16 110/61 (77) 98 Room Air 03/28/18 12:00 98.1 79 17 137/80 (99) 97 03/28/18 08:00 98.2 59 17 144/77 (99) 98 03/28/18 03:21 18 03/28/18 00:00 98.0 68 18 121/75 (90) 97 03/27/18 23:26 98.1 73 16 107/63 (78) 95 03/27/18 21:50 16 03/27/18 19:53 97.8 59 16 111/63 (79) 98 I/O 03/27/18 03/27/18 03/27/18 03/28/18 03/28/18 03/28/18 07:00 15:00 23:00 07:00 15:00 23:00 Intake Total 1000 ml 250 ml 262.5 ml Balance 1000 ml 250 ml 262.5 ml IV Total 1000 ml 250 ml 262.5 ml # Voids 1 Physical Exam GENERAL: NAD, AAOx3 SKIN: Warm and dry. HEAD: Atraumatic. Normocephalic. EYES: Pupils equal and round. No scleral icterus. No injection or drainage. ENT: No nasal bleeding or discharge. Mucous membranes pink and moist. NECK: Trachea midline. No JVD. CARDIOVASCULAR: Regular rate and rhythm. RESPIRATORY: No accessory muscle use. Clear to auscultation. Breath sounds equal bilaterally. GASTROINTESTINAL: Abdomen soft, non-tender, nondistended. Hepatic and splenic margins not palpable. MUSCULOSKELETAL: Extremities without clubbing, cyanosis, or edema. No obvious deformities. NEUROLOGICAL: Awake and alert. No obvious cranial nerve deficits. Motor grossly within normal limits. Five out of 5 muscle strength in the arms and legs. Normal speech. PSYCHIATRIC: Appropriate mood and affect; insight and judgment normal. 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 - Other nonrheumatic tricuspid valve disorders (2) Bacteremia ICD Codes: R78.81 - Bacteremia (3) Febrile illness ICD Codes: R50.9 - Fever, unspecified Status: Acute (4) SIRS (systemic inflammatory response syndrome) ICD Codes: R65.10 - Systemic inflammatory response syndrome (SIRS) of non- infectious origin without acute organ dysfunction Status: Acute (5) Headache ICD Codes: R51 - Headache Assessment and Plan 1) Bacteremia with MRSA 2) FOREST showing small mobile density on the tricuspid valve consistent with endocarditis FOREST full report to follow 3) Discussed with infectious disease 4) Tobacco cessation David Da Silva DO Mar 28, 2018 17:14
[2018-03-28] MEDS ORDERED: SUMAtriptan SUCCINATE 50 MG TAB PO ONE (18:45)
[2018-03-28 20:00] VITALS: BP 114/66; PULSE 66; RESP 18; TEMP 97.7; O2SAT 96
[2018-03-28] MEDS: traMADol HCL 50 MG TAB PO PRN (20:36)
[2018-03-28] MEDS: REMOVE OLD NICODERM (NICOTINE) PATCH T-DERMAL SCH (21:00)
[2018-03-28] MEDS: REMOVE OLD LIDOCAINE PATCH T-DERMAL SCH (21:00)
--- NOTE | 2018-03-28 22:04 | HHI.IDPN ---
Subjective Subjective Remarks c/o pain "all over" BC remain positive again 01/21 FOREST showing small tricuspid mobile density consistent with endocarditis Chest CT showed Confirmation of a 1.2 cm subpleural mass at the posterior lateral right lower lobe. Antibiotics vancomycin Allergies: Coded Allergies: codeine (Unverified Allergy, Intermediate, EDEMA AND VOMITING, 03/24/18) Objective . Vital Signs Date Time Temp Pulse Resp B/P (MAP) Pulse Ox O2 Delivery O2 Flow Rate FiO2 03/28/18 20:00 97.7 66 18 114/66 (82) 96 03/28/18 16:00 97.5 73 17 124/72 (89) 96 03/28/18 14:37 58 16 111/62 (78) 96 Room Air 03/28/18 14:29 63 16 106/64 (78) 95 Room Air 03/28/18 14:15 98.2 64 16 110/61 (77) 98 Room Air 03/28/18 12:00 98.1 79 17 137/80 (99) 97 03/28/18 08:00 98.2 59 17 144/77 (99) 98 03/28/18 03:21 18 03/28/18 00:00 98.0 68 18 121/75 (90) 97 03/27/18 23:26 98.1 73 16 107/63 (78) 95 03/28/18 03/28/18 03/29/18 15:00 23:00 07:00 Intake Total 1960 ml Balance 1960 ml Intake Oral 760 ml IV Total 1200 ml # Voids 3 # Bowel Movements 1 . Laboratory Tests Test 03/28/18 04:57 Creatinine 0.53 MG/DL Estimat Glomerular Filtration Rate 121 ML/MIN Microbiology Date/Time Source Procedure Growth Status 03/26/18 05:06 Blood Peripheral Aerobic Blood Culture - Final S. Aureus Mrsa Complete 03/26/18 05:06 Anaerobic Blood Culture - Final S. Aureus Mrsa Complete 03/26/18 05:02 Blood Peripheral Aerobic Blood Culture - Final S. Aureus Mrsa Complete 03/26/18 05:02 Anaerobic Blood Culture - Final S. Aureus Mrsa Complete Imaging Last Impressions Thoracic Spine MRI 03/27/18 0000 Signed Impressions: CONCLUSION: 1. No thoracic spine abnormality is identified. 2. There is a partially visualized 11 mm nodule suspected in the right lower l obe. Given the prior concern for an abscess, this could represent a source for infection. Consider chest CT for further evaluation. Chest CT 03/27/18 Signed Impressions: CONCLUSION: 1. Confirmation of a 1.2 cm subpleural mass at the posterior lateral right low er lobe. This area could be further evaluated with a PET FDG study to determine if it is metabolically active or not. It is amenable to biopsy if needed. 2. Linear suspected suspected scarring or atelectasis at the inferior medial r ight upper lobe and at the posterior lung bases bilaterally. Brain MRI 03/26/18 Signed Impressions: CONCLUSION: 1. Chronic small vessel ischemic and atrophic changes. 2. Small venous angioma on the left and chronic sinusitis as above. Lumbar Puncture Fluoroscopy 03/25/18 Signed Impressions: CONCLUSION: 1. Uncomplicated fluoroscopically guided lumbar puncture with pressures as abo ve. Cervical Spine MRI 03/25/18 Signed Impressions: CONCLUSION: 1. No epidural abscess is identified and there are no findings to suggest infe ction. Patient is post C5 and C6 corpectomy with bone graft placement and anter ior and posterior hardware placement. Hardware demonstrates no acute finding. 2. Abnormal signal within the spinal cord adjacent to the surgery. This most l ikely represents myelomalacia. 3. No significant spinal canal stenosis or neural foraminal stenosis is identi fied. Abdomen/Pelvis CT 03/25/18 Signed Impressions: CONCLUSION: 1. Trace amount of free fluid within the cul-de-sac. 2. No acute abnormality . 3. Dilated gonadal vein with pelvic varicosities. 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 4. Pectus excavatum. Chest X-Ray 03/24/18 Signed Impressions: CONCLUSION: Negative examination. Physical Exam CONSTITUTIONAL/GENERAL: This is an adequately nourished patient, in some apparent distress 2/2 headache TUBES/LINES/DRAINS: SKIN: No jaundice, rashes, or lesions. Skin temperature appropriate. Not diaphoretic. HEAD: Atraumatic. Normocephalic. EYES: Pupils equal and round and reactive. Extraocular motions intact. No scleral icterus. No injection or drainage. Fundi not examined. ENT: Hearing grossly normal. Nose without bleeding or purulent drainage. Throat without visible erythema, exudates, masses, or lesions. NECK: Trachea midline. Supple, tender to palpation. Well healed scar posterior neck. No edema, erythema, drainage CARDIOVASCULAR: Regular rate and rhythm without murmurs, gallops, or rubs. No JVD. Peripheral pulses symmetric. RESPIRATORY/CHEST: Symmetric, unlabored respirations. Clear to auscultation. Breath sounds equal bilaterally. No wheezes, rales, or rhonchi. GASTROINTESTINAL: Abdomen soft, non-tender, nondistended. No hepato-splenomegaly , or palpable masses. No guarding. Bowel sounds present. MUSCULOSKELETAL: Extremities without clubbing, cyanosis, or edema. No joint tenderness or effusion noted. No calf tenderness. No mottling or clubbing. NEUROLOGICAL: Awake and alert. Motor and sensory grossly within normal limits. Follows commands. Cognitively sharp. Moves all extremities. PSYCHIATRIC: No obvious anxiety/depression. no apparent hallucinations or other psychotic thought process. Assessment & Plan Remarks MRSA tricuspid valve endocarditis Cont vancomycin more blood clx will add gent if remains bacteremic on repeat BC/ fever dw helpdesk administrator Gin Starks MD Mar 28, 2018 22:04
[2018-03-29] VITALS: BP 136/74; PULSE 60; RESP 18; TEMP 97.7; O2SAT 97
[2018-03-29] MEDS: VANCOMYCIN INJ 1,500 MG in SODIUM CHLORID 0.9% 500 ML INJ 500 ML IV SCH ×2 (03:44→15:08)
[2018-03-29] MEDS: DIAZEPAM 5 MG TAB PO PRN ×2 (04:43→16:51)
[2018-03-29] MEDS: SODIUM CHLORIDE 0.9% FLUSH 10 ML FLUSH IV FLUSH SCH ×2 (07:10→20:15)
[2018-03-29] MEDS: NICOTINE 14 MG/24 HR PATCH T-DERMAL SCH (07:11)
--- NOTE | 2018-03-29 07:54 | HHI.PR ---
Subjective Remarks Patient seen and examined this morning, their vitals are stable and the patient is afebrile. Continued to have headache yesterday evening, requested Imitrex. Patient states Imitrex with Toradol helps KOCH. States she has chronic neck and back pain at baseline, and is not getting home regemine of Roxicodone. Patient sleeping comfortably when I walked in room. I awakened her and she began complaining of pain and stated she cannot sleep. Objective Vital Signs Date Time Temp Pulse Resp B/P (MAP) Pulse Ox O2 Delivery O2 Flow Rate FiO2 03/29/18 00:00 97.7 60 18 136/74 (94) 97 03/28/18 20:00 97.7 66 18 114/66 (82) 96 03/28/18 16:00 97.5 73 17 124/72 (89) 96 03/28/18 14:37 58 16 111/62 (78) 96 Room Air 03/28/18 14:29 63 16 106/64 (78) 95 Room Air 03/28/18 14:15 98.2 64 16 110/61 (77) 98 Room Air 03/28/18 12:00 98.1 79 17 137/80 (99) 97 03/28/18 08:00 98.2 59 17 144/77 (99) 98 I/O 03/28/18 03/28/18 03/28/18 03/29/18 03/29/18 03/29/18 07:00 15:00 23:00 07:00 15:00 23:00 Intake Total 262.5 ml 1960 ml 360 ml Balance 262.5 ml 1960 ml 360 ml Intake Oral 760 ml 360 ml IV Total 262.5 ml 1200 ml # Voids 1 3 2 # Bowel Movements 1 0 Result Diagram: 03/26/18 0502 03/28/18 0457 Imaging Last Impressions Thoracic Spine MRI 03/27/18 0000 Signed Impressions: CONCLUSION: 1. No thoracic spine abnormality is identified. 2. There is a partially visualized 11 mm nodule suspected in the right lower l obe. Given the prior concern for an abscess, this could represent a source for infection. Consider chest CT for further evaluation. Chest CT 03/27/18 0000 Signed Impressions: CONCLUSION: 1. Confirmation of a 1.2 cm subpleural mass at the posterior lateral right low er lobe. This area could be further evaluated with a PET FDG study to determine if it is metabolically active or not. It is amenable to biopsy if needed. 2. Linear suspected suspected scarring or atelectasis at the inferior medial r ight upper lobe and at the posterior lung bases bilaterally. Brain MRI 03/26/18 Signed Impressions: CONCLUSION: 1. Chronic small vessel ischemic and atrophic changes. 2. Small venous angioma on the left and chronic sinusitis as above. Lumbar Puncture Fluoroscopy 03/25/18 Signed Impressions: CONCLUSION: 1. Uncomplicated fluoroscopically guided lumbar puncture with pressures as abo ve. Cervical Spine MRI 03/25/18 Signed Impressions: CONCLUSION: 1. No epidural abscess is identified and there are no findings to suggest infe ction. Patient is post C5 and C6 corpectomy with bone graft placement and anter ior and posterior hardware placement. Hardware demonstrates no acute finding. 2. Abnormal signal within the spinal cord adjacent to the surgery. This most l ikely represents myelomalacia. 3. No significant spinal canal stenosis or neural foraminal stenosis is identi fied. Abdomen/Pelvis CT 03/25/18 Signed Impressions: CONCLUSION: 1. Trace amount of free fluid within the cul-de-sac. 2. No acute abnormality . 3. Dilated gonadal vein with pelvic varicosities. 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 4. Pectus excavatum. Chest X-Ray 03/24/18 Signed Impressions: CONCLUSION: Negative examination. Objective Remarks GENERAL: Well-appearing, no acute distress SKIN: Warm and dry. HEAD: Normocephalic. EYES: No scleral icterus. No injection or drainage. NECK: Supple, trachea midline. No JVD or lymphadenopathy. CARDIOVASCULAR: Regular rate and rhythm without murmurs, gallops, or rubs. RESPIRATORY: Breath sounds equal bilaterally. No accessory muscle use. GASTROINTESTINAL: Abdomen soft, non-tender, nondistended. MUSCULOSKELETAL: No cyanosis, or edema. A/P Problem List: (1) Bacteremia ICD Code: R78.81 - Bacteremia (2) Headache ICD Code: R51 - Headache Assessment and Plan 52-year-old female with no significant medical history presented to the ER with a chief complaint of fever found to have bacteremia MRSA bacteremia, 442 Patient has a history of MSSA cervical spine infection about 1 year ago MRI cervical spine with no evidence of infection MRI brain negative CRP elevated CSF studies negative, no growth to date Infectious disease following, continue vancomycin. Repeat blood cultures ordered. We will add gentamicin if remains bacteremic. 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 No inpatient gynecological workup at this time, follow-up with CREDIT CONTROL CLERK as outpatient following discharge Headache Patient continues to have significant headache CT head negative Patient has tried Valium, Fioricet, Tylenol, gabapentin, Imitrex and tramadol KOCH began right after LP, usually post lumbar puncture headaches resolve within 20-24 hrs. I have consulted neurology. Cannabinoid use Cessation was discussed Chronic Pain/Back Continue Roxicodone, dose increased from 10 mg to 15 mg Nurse verified this is a home medication from patients pharmacy on file DVT prophylaxis Bilateral SCDs, avoiding chemical prophylaxis due to lumbar puncture Discharge Planning d/c pending further workup Jo Gonzalez MD Mar 29, 2018 07:54
[2018-03-29] MEDS: FLUTICASONE PROPIONATE 50 MCG/ACT 16 GM NASAL SPRAY NASAL SCH (08:04)
[2018-03-29] MEDS: LIDOCAINE HCL 5% PATCH T-DERMAL SCH (08:04)
[2018-03-29] MEDS: SODIUM CHLOR 0.9% 1000 ML INJ 1,000 ML IV SCH ×2 (08:04→15:11)
[2018-03-29 09:31] VITALS: BP 141/72; PULSE 55; RESP 16; TEMP 97.5; O2SAT 95
--- NOTE | 2018-03-29 12:22 | PD.CARD.PN ---
Subjective Subjective Remarks Complaining of neck pain/headache FOREST showing small tricuspid mobile density consistent with endocarditis Objective Medications Current Medications Medications (Trade) Dose Ordered Sig/Corinne Route Start Time Stop Time Status Last Admin Sodium Chloride 1,000 ml @ 100 mls/hr Q10H IV 03/25/18 01:19 03/29/18 08:04 (NS Flush) 2 ml UNSCH PRN IV FLUSH 03/25/18 01:30 (NS Flush) 2 ml BID IV FLUSH 03/25/18 09:00 03/27/18 20:13 (Tylenol) 650 mg Q4H PRN PO 03/25/18 01:30 03/25/18 21:03 (Narcan Inj) 0.4 mg UNSCH PRN IV PUSH 03/25/18 01:30 (Lidoderm 5% Patch.12 Hr) 1 patch DAILY T-DERMAL 03/25/18 09:15 03/29/18 08:04 Miscellaneous Information 1 Q24H T-DERMAL 03/25/18 21:00 03/26/18 20:53 (Zofran Odt) 4 mg Q8HR PRN PO 03/25/18 09:30 03/26/18 18:24 Pharmacy Profile Note 0 ml @ 0 mls/hr UNSCH OTHER 03/25/18 11:30 (Ultram) 50 mg Q8H PRN PO 03/25/18 15:30 03/28/18 20:36 (Habitrol 14 Mg Patch.24 Hr) 1 patch DAILY T-DERMAL 03/25/18 16:45 03/27/18 09:00 Miscellaneous Information 1 HS T-DERMAL 03/26/18 21:00 03/27/18 09:03 (Flonase Shawn Spr) 2 spray DAILY NASAL 03/26/18 13:15 03/29/18 08:04 (Valium) 5 mg Q12H PRN PO 03/27/18 11:30 03/29/18 04:43 Vancomycin HCl 1500 mg/Sodium Chloride 515 ml @ 250 mls/hr Q12H IV 03/28/18 15:00 03/29/18 03:44 ([facility] Ordered Lab Info) SPECIFIC LAB TO BE DRAWN:VANCOMYCIN TROUGH DATE TO... ONCE ONCE .XX 03/30/18 02:45 03/30/18 02:46 ([facility] [place] [facility]) ALL NURSING DEPARTME... UNSCH PRN .XX 03/28/18 15:00 03/29/18 14:59 (Roxicodone) 15 mg Q6H PRN PO 03/29/18 11:30 03/29/18 10:53 Vital Signs / I&O Vital Signs Date Time Temp Pulse Resp B/P (MAP) Pulse Ox O2 Delivery O2 Flow Rate FiO2 03/29/18 09:31 97.5 55 16 141/72 (95) 95 03/29/18 00:00 97.7 60 18 136/74 (94) 97 03/28/18 20:00 97.7 66 18 114/66 (82) 96 03/28/18 16:00 97.5 73 17 124/72 (89) 96 03/28/18 14:37 58 16 111/62 (78) 96 Room Air 03/28/18 14:29 63 16 106/64 (78) 95 Room Air 03/28/18 14:15 98.2 64 16 110/61 (77) 98 Room Air I/O 03/28/18 03/28/18 03/28/18 03/29/18 03/29/18 03/29/18 07:00 15:00 23:00 07:00 15:00 23:00 Intake Total 262.5 ml 1960 ml 360 ml Balance 262.5 ml 1960 ml 360 ml Intake Oral 760 ml 360 ml IV Total 262.5 ml 1200 ml # Voids 1 3 2 # Bowel Movements 1 0 Physical Exam GENERAL: NAD, AAOx3 SKIN: Warm and dry. HEAD: Atraumatic. Normocephalic. EYES: Pupils equal and round. No scleral icterus. No injection or drainage. ENT: No nasal bleeding or discharge. Mucous membranes pink and moist. NECK: Trachea midline. No JVD. CARDIOVASCULAR: Regular rate and rhythm. RESPIRATORY: No accessory muscle use. Clear to auscultation. Breath sounds equal bilaterally. GASTROINTESTINAL: Abdomen soft, non-tender, nondistended. Hepatic and splenic margins not palpable. MUSCULOSKELETAL: Extremities without clubbing, cyanosis, or edema. No obvious deformities. NEUROLOGICAL: Awake and alert. No obvious cranial nerve deficits. Motor grossly within normal limits. Five out of 5 muscle strength in the arms and legs. Normal speech. PSYCHIATRIC: Appropriate mood and affect; insight and judgment normal. Laboratory Laboratory Tests Test 03/28/18 12:39 Vancomycin Level Trough 11.7 MCG/ML Assessment and Plan Problem List: (1) Endocarditis of tricuspid valve ICD Codes: I36.8 - Other nonrheumatic tricuspid valve disorders (2) Bacteremia ICD Codes: R78.81 - Bacteremia (3) Febrile illness ICD Codes: R50.9 - Fever, unspecified Status: Acute (4) SIRS (systemic inflammatory response syndrome) ICD Codes: R65.10 - Systemic inflammatory response syndrome (SIRS) of non- infectious origin without acute organ dysfunction Status: Acute (5) Headache ICD Codes: R51 - Headache Assessment and Plan 1) Bacteremia with MRSA 2) FOREST showing small mobile density on the tricuspid valve consistent with endocarditis FOREST full report to follow 3) Discussed with infectious disease 4) Tobacco cessation 5) Will see PRN, call with questions David Da Silva DO Mar 29, 2018 12:22
[2018-03-29 13:15] VITALS: BP 133/62; PULSE 62; RESP 17; TEMP 97.7; O2SAT 97
--- NOTE | 2018-03-29 14:07 | ECHRPT ---
Indication: Bacteremia CONCLUSIONS The left ventricular systolic function is normal with an estimated ejection fraction in the range of 55-60%. Trace mitral valve regurgitation. There is mild tricuspid valve regurgitation. Small mobile echodenisty with extra-cardiac motion noted on the septal leaflet of the tricuspid valv e in the deep gastric view, consistent with endocarditis. BP: / HR: Rhythm: Sinus Technical Quality:Good Medications Complications Proc. Components Anesthesia at the bedside for sedation. FINDINGS LEFT VENTRICLE The left ventricular systolic function is normal with an estimated ejection fraction in the range of 55-60%. Normal left ventricular size. No regional wall motion abnormalities are present. RIGHT VENTRICLE Grossly normal LEFT ATRIUM The left atrial size is normal. RIGHT ATRIUM The right atrial size is normal. A prominent chiari network is observed in the right atrial cavity (benign finding). ATRIAL APPENDAGES Normal left atrial appendage size with no evidence of thrombus formation. ATRIAL SEPTUM No atrial level shunt is demonstrated by color flow Doppler or agitated saline imaging. AORTA Descending aorta with no abnormalities noted MITRAL VALVE Structurally normal mitral valve. Trace mitral valve regurgitation. No mitral valve stenosis. AORTIC VALVE Trileaflet aortic valve. No aortic valve regurgitation. No aortic valve stenosis. TRICUSPID VALVE Structurally normal tricuspid valve. There is mild tricuspid valve regurgitation. No tricuspid valve stenosis. Small mobile echodenisty with extra-cardiac motion noted on the septal leaflet in the deep gastric v iew, consistent with endocarditis. VESSELS The pulmonary valve is not well visualized. Trivial pulmonary valve regurgitation. PERICADIUM No pericardial effusion. David Da Silva DO (Electronically Signed) Final Date:29 March 2018 14:06
[2018-03-29] MEDS: traMADol HCL 50 MG TAB PO PRN (15:09)
[2018-03-29] MEDS: SUMAtriptan SUCCINATE 50 MG TAB PO ONE ×2 (15:11→15:58)
[2018-03-29] MEDS ORDERED: SUMAtriptan SUCCINATE 50 MG TAB PO ONE (17:00)
[2018-03-29 17:31] VITALS: BP 155/78; PULSE 64; RESP 18; TEMP 98.2; O2SAT 97
[2018-03-29 20:00] VITALS: BP 135/78; PULSE 58; RESP 20; TEMP 97.8; O2SAT 95
[2018-03-29] MEDS: REMOVE OLD LIDOCAINE PATCH T-DERMAL SCH (20:15)
[2018-03-29] MEDS: REMOVE OLD NICODERM (NICOTINE) PATCH T-DERMAL SCH (20:15)
[2018-03-30] VITALS: BP 123/73; PULSE 53; RESP 18; TEMP 98; O2SAT 96
[2018-03-30] MEDS ORDERED: PHARMACY ORDERED LAB ONE (02:45)
[2018-03-30] MEDS: VANCOMYCIN INJ 1,500 MG in SODIUM CHLORID 0.9% 500 ML INJ 500 ML IV SCH ×2 (03:04→14:26)
[2018-03-30] MEDS: SODIUM CHLOR 0.9% 1000 ML INJ 1,000 ML IV SCH ×2 (03:04→13:50)
[2018-03-30 03:29] LABS: BICARBONATE 27.5 MEQ/L (21.0-32.0); CALCIUM 8.2 MG/DL (8.5-10.1); CREATININE 0.64 MG/DL (0.50-1.00)
[2018-03-30] MEDS: DIAZEPAM 5 MG TAB PO PRN ×2 (04:50→15:18)
[2018-03-30 08:00] VITALS: BP 166/70; PULSE 57; RESP 18; TEMP 97.7; O2SAT 100
[2018-03-30] MEDS: NICOTINE 14 MG/24 HR PATCH T-DERMAL SCH (08:02)
[2018-03-30] MEDS: LIDOCAINE HCL 5% PATCH T-DERMAL SCH (08:02)
[2018-03-30] MEDS: FLUTICASONE PROPIONATE 50 MCG/ACT 16 GM NASAL SPRAY NASAL SCH (08:03)
[2018-03-30] MEDS: SODIUM CHLORIDE 0.9% FLUSH 10 ML FLUSH IV FLUSH SCH ×2 (08:03→20:13)
[2018-03-30 12:00] VITALS: BP 133/75; PULSE 82; RESP 19; TEMP 97.8; O2SAT 96
--- NOTE | 2018-03-30 14:01 | HHI.PR ---
Subjective Remarks Patient reports anxiety is not controlled. Wants increased frequency of volume. She also reports persistent left shoulder pain and states she normally takes more pain medications at home. Requested increase in her pain medications. Denies fevers or chills. Patient reports her headache is much better. Objective Vitals Vital Signs Date Time Temp Pulse Resp B/P (MAP) Pulse Ox O2 Delivery O2 Flow Rate FiO2 03/30/18 12:00 97.8 82 19 133/75 (94) 96 03/30/18 08:00 97.7 57 18 166/70 (102) 100 03/30/18 05:51 18 03/30/18 00:00 98.0 53 18 123/73 (90) 96 03/29/18 23:52 18 03/29/18 20:00 97.8 58 20 135/78 (97) 95 03/29/18 17:31 98.2 64 18 155/78 (103) 97 I/O 03/29/18 03/29/18 03/29/18 03/30/18 03/30/18 03/30/18 07:00 15:00 23:00 07:00 15:00 23:00 Intake Total 360 ml 1280 ml 1875 ml 1000 ml Balance 360 ml 1280 ml 1875 ml 1000 ml Intake Oral 360 ml 1280 ml 360 ml IV Total 1515 ml 1000 ml # Voids 2 8 2 # Bowel Movements 0 2 0 Result Diagram: 03/26/18 0502 03/30/18 0255 Objective Remarks GENERAL: This is a well-nourished, well-developed patient, in no apparent distress. CARDIOVASCULAR: Normal rate and regular rhythm without murmurs, gallops, or rubs. RESPIRATORY: Good respiratory efforts. Breath sounds equal and clear to auscultation bilaterally. GASTROINTESTINAL: Abdomen soft, non-tender, non-distended. Normal active bowel sounds MUSCULOSKELETAL: Patient reports tenderness to palpation over the paraspinous muscles in the upper thoracic region on the left. NEURO: Alert & Oriented x4 to person, place, time, situation. Moves all ext x4 PSYCH: Appropriate mood and affect. Procedures 03/25/18 lumbar puncture A/P Assessment and Plan 52-year-old female with no significant medical history presented to the ER with a chief complaint of fever found to have bacteremia MRSA bacteremia Patient has a history of MSSA cervical spine infection about 1 year ago MRI cervical spine with no evidence of infection MRI brain negative CRP elevated CSF studies negative, no growth to date Infectious disease following, continue vancomycin. 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 No inpatient gynecological workup at this time, follow-up with RESISTOR INSPECTOR as outpatient following discharge Headache Could be related to LP CT head negative Patient has tried Valium, Fioricet, Tylenol, gabapentin, Imitrex and tramadol. She uses narcotics and anxiolytics chronically which makes it difficult to control pain Headache much improved. Imitrex as needed. Cannabinoid use Cessation was discussed Anxiety: -resume home dose Valium 5 mg 3 times daily. Chronic Pain/Back Continue Roxicodone, increase to 15 mg every 4 hours as needed. Discussed with the patient that there is no plan to increase her narcotic regimen on discharge. When ready she should be discharged on her home regimen. I am concerned about narcotics and anxiolytics seeking behavior. DVT prophylaxis Bilateral SCDs, patient is ambulatory Discharge Planning Need prolonged IV antibiotics for bacterial endocarditis. infectious disease following Rodger Brown MD Mar 30, 2018 14:01
[2018-03-30 16:00] VITALS: BP 116/69; PULSE 86; RESP 19; TEMP 98.5; O2SAT 97
[2018-03-30 20:00] VITALS: BP 186/80; PULSE 69; RESP 19; TEMP 97.7; O2SAT 96
[2018-03-30] MEDS: REMOVE OLD LIDOCAINE PATCH T-DERMAL SCH (20:32)
[2018-03-30] MEDS: REMOVE OLD NICODERM (NICOTINE) PATCH T-DERMAL SCH (20:32)
[2018-03-31] VITALS: BP 143/65; PULSE 54; RESP 17; TEMP 97.8; O2SAT 96
[2018-03-31] MEDS: VANCOMYCIN INJ 1,500 MG in SODIUM CHLORID 0.9% 500 ML INJ 500 ML IV SCH ×2 (03:49→15:01)
[2018-03-31 08:00] VITALS: BP 120/60; PULSE 71; RESP 16; TEMP 97.6; O2SAT 94
[2018-03-31] MEDS: DIAZEPAM 5 MG TAB PO PRN ×3 (08:11→21:13)
[2018-03-31] MEDS: NICOTINE 14 MG/24 HR PATCH T-DERMAL SCH (08:12)
[2018-03-31] MEDS: FLUTICASONE PROPIONATE 50 MCG/ACT 16 GM NASAL SPRAY NASAL SCH (08:12)
[2018-03-31] MEDS: LIDOCAINE HCL 5% PATCH T-DERMAL SCH (08:12)
[2018-03-31] MEDS: SODIUM CHLORIDE 0.9% FLUSH 10 ML FLUSH IV FLUSH SCH ×2 (08:13→21:13)
--- NOTE | 2018-03-31 11:22 | HHI.IDPN ---
Subjective Subjective Remarks c/o headache and pain in the neck BC remain positive again 01/21 FOREST showing small tricuspid mobile density consistent with endocarditis Chest CT showed Confirmation of a 1.2 cm subpleural mass at the posterior lateral right lower lobe. Antibiotics vancomycin Allergies: Coded Allergies: codeine (Unverified Allergy, Intermediate, EDEMA AND VOMITING, 03/24/18) Objective . Vital Signs Date Time Temp Pulse Resp B/P (MAP) Pulse Ox O2 Delivery O2 Flow Rate FiO2 03/31/18 08:00 97.6 71 16 120/60 (80) 94 03/31/18 00:00 97.8 54 17 143/65 (91) 96 03/30/18 20:00 97.7 69 19 186/80 (115) 96 03/30/18 16:00 98.5 86 19 116/69 (85) 97 03/30/18 12:00 97.8 82 19 133/75 (94) 96 . Laboratory Tests Test 03/30/18 02:55 Blood Urea Nitrogen 5 MG/DL Creatinine 0.64 MG/DL Random Glucose 133 MG/DL Calcium Level 8.2 MG/DL Sodium Level 144 MEQ/L Potassium Level 3.6 MEQ/L Chloride Level 108 MEQ/L Carbon Dioxide Level 27.5 MEQ/L Anion Gap 9 MEQ/L Estimat Glomerular Filtration Rate 97 ML/MIN Microbiology Date/Time Source Procedure Growth Status 03/29/18 05:40 Blood Peripheral Aerobic Blood Culture - Preliminary NO GROWTH IN 2 DAYS Resulted 03/29/18 05:40 Blood Peripheral Anaerobic Blood Culture - Preliminary NO GROWTH IN 2 DAYS Resulted 03/29/18 05:34 Blood Peripheral Aerobic Blood Culture - Preliminary NO GROWTH IN 2 DAYS Resulted 03/29/18 05:34 Blood Peripheral Anaerobic Blood Culture - Preliminary NO GROWTH IN 2 DAYS Resulted Imaging Last Impressions Thoracic Spine MRI 03/27/18 0000 Signed Impressions: CONCLUSION: 1. No thoracic spine abnormality is identified. 2. There is a partially visualized 11 mm nodule suspected in the right lower l obe. Given the prior concern for an abscess, this could represent a source for infection. Consider chest CT for further evaluation. Chest CT 03/27/18 0000 Signed Impressions: CONCLUSION: 1. Confirmation of a 1.2 cm subpleural mass at the posterior lateral right low er lobe. This area could be further evaluated with a PET FDG study to determine if it is metabolically active or not. It is amenable to biopsy if needed. 2. Linear suspected suspected scarring or atelectasis at the inferior medial r ight upper lobe and at the posterior lung bases bilaterally. Brain MRI 03/26/18 Signed Impressions: CONCLUSION: 1. Chronic small vessel ischemic and atrophic changes. 2. Small venous angioma on the left and chronic sinusitis as above. Lumbar Puncture Fluoroscopy 03/25/18 Signed Impressions: CONCLUSION: 1. Uncomplicated fluoroscopically guided lumbar puncture with pressures as abo ve. Cervical Spine MRI 03/25/18 Signed Impressions: CONCLUSION: 1. No epidural abscess is identified and there are no findings to suggest infe ction. Patient is post C5 and C6 corpectomy with bone graft placement and anter ior and posterior hardware placement. Hardware demonstrates no acute finding. 2. Abnormal signal within the spinal cord adjacent to the surgery. This most l ikely represents myelomalacia. 3. No significant spinal canal stenosis or neural foraminal stenosis is identi fied. Abdomen/Pelvis CT 03/25/18 Signed Impressions: CONCLUSION: 1. Trace amount of free fluid within the cul-de-sac. 2. No acute abnormality . 3. Dilated gonadal vein with pelvic varicosities. 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 4. Pectus excavatum. Chest X-Ray 03/24/18 Signed Impressions: CONCLUSION: Negative examination. Physical Exam CONSTITUTIONAL/GENERAL: This is an adequately nourished patient, in some apparent distress 2/2 headache TUBES/LINES/DRAINS: SKIN: No jaundice, rashes, or lesions. Skin temperature appropriate. Not diaphoretic. HEAD: Atraumatic. Normocephalic. EYES: Pupils equal and round and reactive. Extraocular motions intact. No scleral icterus. No injection or drainage. Fundi not examined. ENT: Hearing grossly normal. Nose without bleeding or purulent drainage. Throat without visible erythema, exudates, masses, or lesions. NECK: Trachea midline. Supple, tender to palpation. Well healed scar posterior neck. No edema, erythema, drainage CARDIOVASCULAR: Regular rate and rhythm without murmurs, gallops, or rubs. No JVD. Peripheral pulses symmetric. RESPIRATORY/CHEST: Symmetric, unlabored respirations. Clear to auscultation. Breath sounds equal bilaterally. No wheezes, rales, or rhonchi. GASTROINTESTINAL: Abdomen soft, non-tender, nondistended. No hepato-splenomegaly , or palpable masses. No guarding. Bowel sounds present. MUSCULOSKELETAL: Extremities without clubbing, cyanosis, or edema. No joint tenderness or effusion noted. No calf tenderness. No mottling or clubbing. NEUROLOGICAL: Awake and alert. Motor and sensory grossly within normal limits. Follows commands. Cognitively sharp. Moves all extremities. PSYCHIATRIC: No obvious anxiety/depression. no apparent hallucinations or other psychotic thought process. Assessment & Plan Remarks MRSA tricuspid valve endocarditis Persistent neck pain Instrumented neck Im concerned that she might have infected hardware which can be not evident on scans Cont vancomycin Rifampin fu blood clx Gin Lai MD Mar 31, 2018 11:22
[2018-03-31 12:00] VITALS: BP 148/66; PULSE 59; RESP 16; TEMP 97.4; O2SAT 93
[2018-03-31] MEDS: ONDANSETRON ODT 4 MG TAB PO PRN (13:08)
--- NOTE | 2018-03-31 13:51 | HHI.PR ---
Subjective Remarks Patient reports she had a headache today. It is improved by the time of my visit. No fevers. Objective Vitals Vital Signs Date Time Temp Pulse Resp B/P (MAP) Pulse Ox O2 Delivery O2 Flow Rate FiO2 03/31/18 12:00 97.4 59 16 148/66 (93) 93 03/31/18 08:00 97.6 71 16 120/60 (80) 94 03/31/18 00:00 97.8 54 17 143/65 (91) 96 03/30/18 20:00 97.7 69 19 186/80 (115) 96 03/30/18 16:00 98.5 86 19 116/69 (85) 97 I/O 03/30/18 03/30/18 03/30/18 03/31/18 03/31/18 03/31/18 07:00 15:00 23:00 07:00 15:00 23:00 Intake Total 1875 ml 1000 ml 1050 ml 240 ml Balance 1875 ml 1000 ml 1050 ml 240 ml Intake Oral 360 ml 1050 ml 240 ml IV Total 1515 ml 1000 ml # Voids 2 8 2 # Bowel Movements 0 1 Result Diagram: 03/30/18 0255 Objective Remarks GENERAL: This is a well-nourished, well-developed patient, in no apparent distress. CARDIOVASCULAR: Normal rate and regular rhythm without murmurs, gallops, or rubs. RESPIRATORY: Good respiratory efforts. Breath sounds equal and clear to auscultation bilaterally. GASTROINTESTINAL: Abdomen soft, non-tender, non-distended. Normal active bowel sounds MUSCULOSKELETAL: Patient reports tenderness to palpation over the paraspinous muscles in the upper thoracic region on the left. NEURO: Alert & Oriented x4 to person, place, time, situation. Moves all ext x4 PSYCH: Appropriate mood and affect. Procedures 03/25/18 lumbar puncture A/P Assessment and Plan 52-year-old female with no significant medical history presented to the ER with a chief complaint of fever found to have bacteremia MRSA bacteremia Patient has a history of MSSA cervical spine infection about 1 year ago MRI cervical spine with no evidence of infection MRI brain negative CRP elevated CSF studies negative, no growth to date Infectious disease following, continue vancomycin. Rifampin added per ID FOREST: showed small tricuspid density consistent with endocarditis Neurosurgery was consulted: Nonsurgical management, no interventions per them, continue antibiotic regimen There are reported track aguilar on presentation to the ED. However patient adamantly denies IVDU. Tox screen was positive for cannabinoids. 1.2 CM mass on chest CT: - Will need follow up PET. 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 No inpatient gynecological workup at this time, follow-up with MANAGER SITE as outpatient following discharge Headache Could be related to LP CT head negative Patient has tried Valium, Fioricet, Tylenol, gabapentin, Imitrex and tramadol. She uses narcotics and anxiolytics chronically which makes it difficult to control pain Headache improved. Imitrex, antiemetics as needed. Cannabinoid use Cessation was discussed Anxiety: -resume home dose Valium 5 mg 3 times daily. Chronic Pain/Back Continue Roxicodone, increase to 15 mg every 4 hours as needed. Discussed with the patient that there is no plan to increase her narcotic regimen on discharge. When ready she should be discharged on her home regimen. I am concerned about narcotics and anxiolytics seeking behavior. DVT prophylaxis Heparin Discharge Planning Need prolonged IV antibiotics for bacterial endocarditis. infectious disease following Rodger Brown MD Mar 31, 2018 13:51
[2018-03-31] MEDS: HEPARIN SODIUM - SQ 10,000 UNITS/ML VIAL SQ SCH (15:00)
[2018-03-31] MEDS ORDERED: SUMAtriptan SUCCINATE 50 MG TAB PO ONE (15:00)
[2018-03-31 16:00] VITALS: BP 140/76; PULSE 59; RESP 17; TEMP 97.6; O2SAT 96
[2018-03-31 20:00] VITALS: BP 150/68; PULSE 54; RESP 12; TEMP 97.5; O2SAT 96
[2018-03-31] MEDS: REMOVE OLD LIDOCAINE PATCH T-DERMAL SCH (21:00)
[2018-03-31] MEDS: REMOVE OLD NICODERM (NICOTINE) PATCH T-DERMAL SCH (21:00)
[2018-03-31] MEDS: RIFAMPIN 150 MG CAP PO SCH (21:13)
[2018-04-01] VITALS: BP 142/72; PULSE 61; RESP 14; TEMP 97.9; O2SAT 95
[2018-04-01] MEDS: HEPARIN SODIUM - SQ 10,000 UNITS/ML VIAL SQ SCH ×2 (01:14→13:08)
[2018-04-01] MEDS: VANCOMYCIN INJ 1,500 MG in SODIUM CHLORID 0.9% 500 ML INJ 500 ML IV SCH ×2 (01:15→18:04)
[2018-04-01] MEDS ORDERED: PHARMACY ORDERED LAB ONE ×3 (02:45→14:45)
[2018-04-01 04:00] VITALS: BP 112/59; PULSE 60; RESP 14; TEMP 98; O2SAT 96
[2018-04-01] MEDS: DIAZEPAM 5 MG TAB PO PRN ×3 (04:58→20:58)
[2018-04-01 08:00] VITALS: BP 117/69; PULSE 60; RESP 16; TEMP 97.3; O2SAT 96
[2018-04-01] MEDS: NICOTINE 14 MG/24 HR PATCH T-DERMAL SCH (09:00)
[2018-04-01] MEDS: RIFAMPIN 150 MG CAP PO SCH ×2 (09:03→21:04)
[2018-04-01] MEDS: SODIUM CHLORIDE 0.9% FLUSH 10 ML FLUSH IV FLUSH SCH ×2 (09:05→21:00)
[2018-04-01] MEDS: LIDOCAINE HCL 5% PATCH T-DERMAL SCH (09:05)
[2018-04-01] MEDS: FLUTICASONE PROPIONATE 50 MCG/ACT 16 GM NASAL SPRAY NASAL SCH (09:11)
[2018-04-01 09:43] LABS: HEMATOCRIT 40.5 % (35.0-46.0); MEAN CELL VOLUME 87.2 FL (80.0-100.0); MEAN CORPUSCULAR HEMOGLOBIN 30.2 PG (27.0-34.0); MEAN CORPUSCULAR HGB CONC 34.6 % (32.0-36.0); MEAN PLATELET VOLUME 7.3 FL (7.0-11.0); PLATELET COUNT 411 TH/MM3 (150-450); RED BLOOD COUNT 4.65 MIL/MM3 (4.00-5.30); RED CELL DISTRIBUTION WIDTH 13.9 % (11.6-17.2); WHITE BLOOD COUNT 7.9 TH/MM3 (4.0-11.0)
[2018-04-01 10:14] LABS: BICARBONATE 27.3 MEQ/L (21.0-32.0); CALCIUM 9.4 MG/DL (8.5-10.1); CREATININE 0.72 MG/DL (0.50-1.00)
[2018-04-01 12:00] VITALS: BP 120/75; PULSE 68; RESP 17; TEMP 97.3; O2SAT 96
[2018-04-01 16:00] VITALS: BP 127/70; PULSE 71; RESP 17; TEMP 97.4; O2SAT 98
--- NOTE | 2018-04-01 16:51 | HHI.PR ---
Subjective Remarks Resting comfortably in bed No event overnight Denied chest and or short of breath No fever or chills Objective Vitals Vital Signs Date Time Temp Pulse Resp B/P (MAP) Pulse Ox O2 Delivery O2 Flow Rate FiO2 04/01/18 12:00 97.3 68 17 120/75 (90) 96 04/01/18 08:00 97.3 60 16 117/69 (85) 96 04/01/18 04:00 98.0 60 14 112/59 (76) 96 04/01/18 00:00 97.9 61 14 142/72 (95) 95 03/31/18 20:00 97.5 54 12 150/68 (95) 96 I/O 03/31/18 03/31/18 03/31/18 04/01/18 04/01/18 04/01/18 07:00 15:00 23:00 07:00 15:00 23:00 Intake Total 240 ml 500 ml 1050 ml Balance 240 ml 500 ml 1050 ml Intake Oral 240 ml 500 ml 1050 ml # Voids 2 4 3 # Bowel Movements 1 Result Diagram: 04/01/18 0855 04/01/18 08 Objective Remarks GENERAL: This is a well-nourished, well-developed patient, in no apparent distress. CARDIOVASCULAR: RRR, no gallops, or rubs. RESPIRATORY: Fair air entry bilaterally. No W, R, or R GASTROINTESTINAL: Abdomen soft, non-tender, nondistended. Positive bowel sounds MUSCULOSKELETAL: Extremities without clubbing, cyanosis, or edema. Pedal pulses appreciated NEUROLOGICAL: Awake and alert. Moves all extremity. Normal speech.no focal neurological deficit Procedures 03/25/18 lumbar puncture A/P Assessment and Plan 04/01: Continue current care with IV antibiotic, Vanco rifampin, continue efforts for placement, monitor for any A/P: MRSA bacteremia>> MRI brain cervical spine negative next, CRP elevated, CSF negative no growth, ID consulted continue vancomycin and rifampin per ID, FOREST showed small tricuspid density consistent with endocarditis, neurosurgery consulted no intervention at this time continue antibiotic, patient denied IVDU , toxic screen was positive for cannabinoid History of dementia is a cervical spine infection in 1 year ago Abdominal pain with vaginal bleeding>> CT abdomen and pelvic with pelvic congestion syndrome, no further bleeding since admission, 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
[2018-04-01 20:00] VITALS: BP 137/70; PULSE 83; RESP 20; TEMP 97.9; O2SAT 95
[2018-04-01] MEDS: REMOVE OLD LIDOCAINE PATCH T-DERMAL SCH (21:00)
[2018-04-01] MEDS: REMOVE OLD NICODERM (NICOTINE) PATCH T-DERMAL SCH (21:00)
[2018-04-02] VITALS: BP 116/56; PULSE 66; RESP 20; TEMP 97.6; O2SAT 96
[2018-04-02] MEDS: HEPARIN SODIUM - SQ 10,000 UNITS/ML VIAL SQ SCH ×2 (00:54→12:32)
[2018-04-02] MEDS: VANCOMYCIN INJ 1,500 MG in SODIUM CHLORID 0.9% 500 ML INJ 500 ML IV SCH ×2 (04:52→16:17)
[2018-04-02] MEDS: DIAZEPAM 5 MG TAB PO PRN ×3 (04:57→20:13)
[2018-04-02 08:00] VITALS: BP 134/66; PULSE 75; RESP 16; TEMP 97.6; O2SAT 95
[2018-04-02] MEDS: FLUTICASONE PROPIONATE 50 MCG/ACT 16 GM NASAL SPRAY NASAL SCH (08:50)
[2018-04-02] MEDS: RIFAMPIN 150 MG CAP PO SCH ×2 (08:50→20:13)
[2018-04-02] MEDS: SODIUM CHLORIDE 0.9% FLUSH 10 ML FLUSH IV FLUSH SCH ×2 (08:50→20:16)
[2018-04-02] MEDS: LIDOCAINE HCL 5% PATCH T-DERMAL SCH (08:51)
[2018-04-02] MEDS: NICOTINE 14 MG/24 HR PATCH T-DERMAL SCH (08:51)
[2018-04-02 12:00] VITALS: BP 127/65; PULSE 73; RESP 18; TEMP 97.7; O2SAT 96
--- NOTE | 2018-04-02 14:18 | HHI.PR ---
Subjective Remarks Patient is having lots Reported no complaint No fever Objective Vitals Vital Signs Date Time Temp Pulse Resp B/P (MAP) Pulse Ox O2 Delivery O2 Flow Rate FiO2 04/02/18 12:00 97.7 73 18 127/65 (85) 96 04/02/18 08:00 97.6 75 16 134/66 (88) 95 04/02/18 00:00 97.6 66 20 116/56 (76) 96 04/01/18 22:18 20 04/01/18 20:00 97.9 83 20 137/70 (92) 95 04/01/18 16:00 97.4 71 17 127/70 (89) 98 I/O 04/01/18 04/01/18 04/01/18 04/02/18 04/02/18 04/02/18 07:00 15:00 23:00 07:00 15:00 23:00 Intake Total 1050 ml 600 ml 360 ml Balance 1050 ml 600 ml 360 ml Intake Oral 1050 ml 600 ml 360 ml # Voids 3 3 2 # Bowel Movements 1 1 Result Diagram: 04/01/18 0855 04/01/18 0855 Objective Remarks GENERAL: This is a well-nourished, well-developed patient, in no apparent distress. CARDIOVASCULAR: RRR, no gallops, or rubs. RESPIRATORY: Fair air entry bilaterally. No W, R, or R GASTROINTESTINAL: Abdomen soft, non-tender, nondistended. Positive bowel sounds MUSCULOSKELETAL: Extremities without clubbing, cyanosis, or edema. Pedal pulses appreciated NEUROLOGICAL: Awake and alert. Moves all extremity. Normal speech.no focal neurological deficit Procedures 03/25/18 lumbar puncture A/P Assessment and Plan 04/01: Continue current care with IV antibiotic, Vanco rifampin, continue efforts for placement, monitor for any 04/02: Continue on IV antibiotic Vanco rifampin, no acute issue today A/P: MRSA bacteremia>> MRI brain cervical spine negative next, CRP elevated, CSF negative no growth, ID consulted continue vancomycin and rifampin per ID, FOREST showed small tricuspid density consistent with endocarditis, neurosurgery consulted no intervention at this time continue antibiotic, patient denied IVDU , toxic screen was positive for cannabinoid History of dementia is a cervical spine infection in 1 year ago Abdominal pain with vaginal bleeding>> CT abdomen and pelvic with pelvic congestion syndrome, no further bleeding since admission, 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
[2018-04-02 16:00] VITALS: BP 142/72; PULSE 74; RESP 18; TEMP 97.6; O2SAT 95
[2018-04-02 20:00] VITALS: BP 125/58; PULSE 72; RESP 20; TEMP 97.5; O2SAT 99
[2018-04-02] MEDS: REMOVE OLD LIDOCAINE PATCH T-DERMAL SCH (20:14)
[2018-04-02] MEDS: REMOVE OLD NICODERM (NICOTINE) PATCH T-DERMAL SCH (20:15)
[2018-04-03] VITALS: BP 120/63; PULSE 82; RESP 20; TEMP 97.6; O2SAT 95
[2018-04-03] MEDS: HEPARIN SODIUM - SQ 10,000 UNITS/ML VIAL SQ SCH (02:00)
[2018-04-03] MEDS: VANCOMYCIN INJ 1,500 MG in SODIUM CHLORID 0.9% 500 ML INJ 500 ML IV SCH (04:35)
[2018-04-03] MEDS: DIAZEPAM 5 MG TAB PO PRN (04:36)
[2018-04-03 06:00] VITALS: RESP 20
[2018-04-03] MEDS: NICOTINE 14 MG/24 HR PATCH T-DERMAL SCH (07:25)
[2018-04-03] MEDS: RIFAMPIN 150 MG CAP PO SCH (07:57)
[2018-04-03] MEDS: SODIUM CHLORIDE 0.9% FLUSH 10 ML FLUSH IV FLUSH SCH (07:57)
[2018-04-03] MEDS: FLUTICASONE PROPIONATE 50 MCG/ACT 16 GM NASAL SPRAY NASAL SCH (07:57)
[2018-04-03] MEDS: LIDOCAINE HCL 5% PATCH T-DERMAL SCH (07:58)
[2018-04-03 12:03] LABS: CREATININE 0.72 MG/DL (0.50-1.00)
[2018-04-03] MEDS ORDERED: PHARMACY ORDERED LAB ONE (17:45)
--- NOTE | 2018-04-03 19:10 | HHI.DS ---
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 Patient reports at home her fever was 103. She endorses nausea and associated vomiting 5 or 6 episodes. She denies any chest pain or shortness of breath. No cough or rhinorrhea. No abdominal pain. In the ED the patient was noted to have multiple small wounds in the bilateral upper extremities that were suspicious for track aguilar. Patient adamantly denies any IV drug abuse. Vital signs: Temperature 102.9, pulse 114, respiratory rate 18, blood pressure 146/88, pulse ox 97% on room air CBC/BMP: 04/01/18 0855 04/03/18 0830 Significant Findings Laboratory Tests Test 04/01/18 04:00 04/01/18 08:55 04/01/18 15:30 04/02/18 05:08 Vancomycin Level Trough 39.9 MCG/ML (5.0-10.0) Blood Urea Nitrogen 5 MG/DL (7-18) Estimat Glomerular Filtration Rate 84 ML/MIN (>89) Test 04/03/18 08:30 Estimat Glomerular Filtration Rate 84 ML/MIN (>89) PE at Discharge GENERAL: This is a well-nourished, well-developed patient, in no apparent distress. CARDIOVASCULAR: RRR, no gallops, or rubs. RESPIRATORY: Fair air entry bilaterally. No W, R, or R GASTROINTESTINAL: Abdomen soft, non-tender, nondistended. Positive bowel sounds MUSCULOSKELETAL: Extremities without clubbing, cyanosis, or edema. Pedal pulses appreciated NEUROLOGICAL: Awake and alert. Moves all extremity. Normal speech.no focal neurological deficit Hospital Course MRSA bacteremia>> MRI brain cervical spine negative next, CRP elevated, CSF negative no growth, ID consulted continue vancomycin and rifampin per ID, FOREST showed small tricuspid density consistent with endocarditis, neurosurgery consulted no intervention at this time continue antibiotic, patient denied IVDU , toxic screen was positive for cannabinoid History of dementia is a cervical spine infection in 1 year ago Abdominal pain with vaginal bleeding>> CT abdomen and pelvic with pelvic congestion syndrome, no further bleeding since admission, 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
== END 2018-04-03 09:12 | disposition left against medical advice (07) | DRG 871 ==
LOC: NEPE 19:34 → NEDA 03-25 01:00 → NEDH 03-25 05:00 → NEPGCP 03-25 10:35 → OBSVTOIN 03-25 11:15 → EEVIPCON 03-25 11:15 → N07B 03-28 00:45
PROVIDERS: ADMIT Hospitalist; ATTEND Hospitalist
PROC: 009U3ZX Drainage of Spinal Canal, Percutaneous Approach, Diagnostic (ICD-10-PCS; 2018-03-25)
PROC: B246ZZ4 Ultrasonography of Right and Left Heart, Transesophageal (ICD-10-PCS; principal; 2018-03-28)
DX: A41.02 Sepsis due to Methicillin resistant Staphylococcus aureus (principal); I33.0 Acute and subacute infective endocarditis; J85.2 Abscess of lung without pneumonia; G95.89 Other specified diseases of spinal cord; E87.1 Hypo-osmolality and hyponatremia; E87.6 Hypokalemia; N94.89 Other specified conditions associated with female genital organs and menstrual cycle; I86.2 Pelvic varices; J32.9 Chronic sinusitis, unspecified; R79.82 Elevated C-reactive protein (CRP); F12.90 Cannabis use, unspecified, uncomplicated; F17.210 Nicotine dependence, cigarettes, uncomplicated; F41.9 Anxiety disorder, unspecified; Z80.0 Family history of malignant neoplasm of digestive organs; Z80.3 Family history of malignant neoplasm of breast; Z86.73 Personal history of transient ischemic attack (TIA), and cerebral infarction without residual deficits; Z98.1 Arthrodesis status
CPT/HCPCS: 62270; 70553; 71045; 71250; 72156; 72157; 74177; 76937; 77003; 80048; 80053; 80202; 80307; 81001; 82550; 82565; 82945; 83605; 83690; 84157; 84484; 84703; 85025; 85027; 85610; 85652; 85730; 86140; 86403; 87040; 87070; 87186; 87205; 87804; 88108; 89051; 93005; 93308; 93312; 93320; 93325; A9579; J1170; J1644; J2270; J3370; J7030; J7040; J7050; Q9963; Q9967